=== PATIENT | female | born 1955 | race Caucasian/White ===

== ENCOUNTER 2017-12-14 18:16 | Inpatient (IN) | payer BC ==
[2017-12-14 19:09] LABS: Glucose,Whole Blood 103 mg/dL (75-99)
[2017-12-14 19:26] LABS: Basophils # (A) 0.1 k/uL (0-0.2); Basophils % (A) 1 %; Eosinophils # (A) 0.1 k/uL (0-0.7); Eosinophils % (A) 2 %; HGB 14.2 gm/dL (11.4-16.0); Lymphocytes # (A) 1.2 k/uL (1.0-4.8); Lymphocytes % (A) 17 %; MCH 30.1 pg (25.0-35.0); MCHC 34.5 g/dL (31.0-37.0); MCV 87.3 fL (80.0-100.0); Mean Platelet Volume 7.6; Monocytes # (A) 0.3 k/uL (0-1.0); Monocytes % (A) 4 %; Neutrophils # (A) 5.1 k/uL (1.3-7.7); Neutrophils % (A) 74 %; Platelet Count 220 k/uL (150-450); RDW 13.3 % (11.5-15.5); WBC 6.9 k/uL (3.8-10.6)
--- NOTE | 2017-12-14 19:27 | CT ---
EXAMINATION TYPE: CT brain wo con DATE OF EXAM: 12/14/2017 COMPARISON: None HISTORY: ams, confusion CT DLP: 997.2 mGycm Automated exposure control for dose reduction was used. FINDINGS: Ventricles of normal size. There is no mass effect nor midline shift. There is no sign of intracrania l hemorrhage. The calvarium is intact. IMPRESSION: NEGATIVE CT SCAN OF THE BRAIN.
[2017-12-14 19:35] LABS: Partial Thromboplastin Time 22.3 sec (22.0-30.0); Prothrombin Time 9.7 sec (9.0-12.0)
[2017-12-14 19:36] LABS: Creatine Kinase 86 U/L (30-135)
[2017-12-14 19:37] LABS: ALT 71 U/L (9-52); AST 51 U/L (14-36); Albumin 4.2 g/dL (3.5-5.0); Alkaline Phosphatase 108 U/L (38-126); Anion Gap 10 mmol/L; Blood Urea Nitrogen 15 mg/dL (7-17); Calcium 9.6 mg/dL (8.4-10.2); Carbon Dioxide 24 mmol/L (22-30); Chloride 106 mmol/L (98-107); Glucose 104 mg/dL (74-99); Potassium 4.1 mmol/L (3.5-5.1); Sodium 140 mmol/L (137-145); Total Bilirubin 0.5 mg/dL (0.2-1.3); Total Protein 6.9 g/dL (6.3-8.2)
--- NOTE | 2017-12-14 19:39 | XR ---
EXAMINATION TYPE: XR chest 2V DATE OF EXAM: 12/14/2017 COMPARISON: NONE HISTORY: Altered mental status TECHNIQUE: Frontal and lateral views of the chest are obtained. FINDINGS: Heart and mediastinum are normal. Lungs are clear of consolidation. There is small linear density at the left lung base. There are chest leads. IMPRESSION: Segmental atelectasis at the left lung base. Normal heart.
--- NOTE | 2017-12-14 19:41 | ED ---
General Adult HPI - General Chief complaint: Neuro Symptoms/Deficit Stated complaint: Confusion Time Seen by Provider: 12/14/17 18:25 Source: patient, RN notes reviewed Mode of arrival: ambulatory Limitations: no limitations - History of Present Illness Initial comments: 62-year-old female with a past medical history of hypertension and hyperlipidemia presents to the emergency department for a chief complaint of confusion 1 hour. states that they were getting ready to go to a friend's house for dinner. He stated he told her she needed to get dressed and she stated she did not know why. She was confused about what they were about to do. He stated she was unsure of where she worked. He states that at this time she seems much better. Patient does not have any history of stroke or TIA. No history of A. fib. No fevers or chills at home. Patient has no other complaints at this time including shortness of breath, chest pain, abdominal pain, nausea or vomiting, headache, or visual changes. - Related Data Home Medications Medication Instructions Recorded Confirmed Atorvastatin [Lipitor] 20 mg PO HS 12/15/15 12/14/17 Venlafaxine HCl [Effexor XR] 300 mg PO HS 12/15/15 12/14/17 amLODIPine [Norvasc] 5 mg PO HS 12/15/15 12/14/17 Aliskiren Hemifumarate [Tekturna] 300 mg PO HS 12/14/17 12/14/17 Cholecalciferol [Vitamin D3] 1,000 unit PO DAILY 12/14/17 12/14/17 Fexofenadine HCl [Joy Allergy] 180 mg PO DAILY 12/14/17 12/14/17 Fish Oil/Dha/Epa [Fish Oil 1,200 1 cap PO DAILY 12/14/17 12/14/17 mg Fish Oil] Metoprolol Succinate [Toprol Xl] 100 mg PO HS 12/14/17 12/14/17 Allergies Allergy/AdvReac Type Severity Reaction Status Date / Time cephalexin [From Keflex] Allergy Rash/Hives Verified 12/14/17 19:01 Review of Systems ROS Statement: Those systems with pertinent positive or pertinent negative responses have been documented in the HPI. ROS Other: All systems not noted in ROS Statement are negative. Past Medical History Past Medical History: Hyperlipidemia, Hypertension History of Any Multi-Drug Resistant Organisms: None Reported Past Surgical History: Hysterectomy, Orthopedic Surgery Additional Past Surgical History / Comment(s): left knee, breast bx Past Psychological History: Anxiety Smoking Status: Former smoker Past Alcohol Use History: Occasional Past Drug Use History: None Reported General Exam Limitations: no limitations General appearance: alert, in no apparent distress Head exam: Present: atraumatic, normocephalic, normal inspection Eye exam: Present: normal appearance, PERRL, EOMI. Absent: scleral icterus, conjunctival injection, periorbital swelling ENT exam: Present: normal exam, mucous membranes moist Neck exam: Present: normal inspection, full ROM. Absent: tenderness, meningismus, lymphadenopathy Respiratory exam: Present: normal lung sounds bilaterally. Absent: respiratory distress, wheezes, rales, rhonchi, stridor Cardiovascular Exam: Present: regular rate, normal rhythm, normal heart sounds. Absent: systolic murmur, diastolic murmur, rubs, gallop, clicks GI/Abdominal exam: Present: soft, normal bowel sounds. Absent: distended, tenderness, guarding, rebound, rigid Neurological exam: Present: alert, oriented X3, CN II-XII intact, normal gait. Absent: motor sensory deficit Expanded Patient oriented to: Present: person, place, time Speech: Present: fluid speech Cranial nerves: EOM's Intact: Normal, Tongue Deviation: Normal, Nystagmus: Normal Cerebellar function: Finger to Nose: Normal Upper motor neuron: Pronator Drift: Normal Sensory exam: Upper Extremity Light Touch: Normal, Upper Extremity Pin Prick: Normal, Lower Extremity Light Touch: Normal, Lower Extremity Pin Prick: Normal Motor strength exam: RUE: 5, LUE: 5, RLE: 5, LLE: 5 Eye Response: (4) open spontaneously Motor Response: (6) obeys commands Verbal Response: (5) oriented Rhona Total: 15 Psychiatric exam: Present: normal affect, normal mood Course Vital Signs 12/14/17 18:20 Temperature 96.8 F L Pulse Rate 92 Respiratory 16 Rate Blood Pressure 165/105 O2 Sat by Pulse 95 Oximetry EKG Findings - EKG Comments: EKG Findings:: EKG shows normal sinus rhythm, ventricular rate 88, MD interval 138, QRS duration 96, QTc 471, no evidence of ST elevation or depression Medical Decision Making - Medical Decision Making 62 year old female presents to the emergency department for a chief complaint of onset of confusion 1 hour. Patient apparently did not know what her plans were for tonight or where she worked. At the time of evaluation patient's states she has seemingly much better. She is alert and oriented 3. There is still some very mild confusion. For example, it did take the patient about 10 seconds to answer the president's name. On exam no focal neuro deficits. No facial droop. NIH 0. EKG shows no evidence of ST elevation. Chest x-ray shows segmental atelectasis at the left lung base. Lungs are clear of consolidation. Negative computed tomography scan of the brain. ABCD2 score is 3 due to patient age blood pressure and duration of symptoms. Blood pressure will be kept as is in not decreased. Patient will be admitted with neurology consult, carotid duplex and echo. - Lab Data Result diagrams: 12/14/17 19:00 12/14/17 19:00 Lab Results 12/14/17 12/14/17 12/14/17 Range/Units 19:00 19:00 19:00 WBC 6.9 (3.8-10.6) k/uL RBC 4.70 (3.80-5.40) m/uL Hgb 14.2 (11.4-16.0) gm/dL Hct 41.0 (34.0-46.0) % MCV 87.3 (80.0-100.0) fL MCH 30.1 (25.0-35.0) pg MCHC 34.5 (31.0-37.0) g/dL RDW 13.3 (11.5-15.5) % Plt Count 220 (150-450) k/uL Neutrophils % 74 % Lymphocytes % 17 % Monocytes % 4 % Eosinophils % 2 % Basophils % 1 % Neutrophils # 5.1 (1.3-7.7) k/uL Lymphocytes # 1.2 (1.0-4.8) k/uL Monocytes # 0.3 (0-1.0) k/uL Eosinophils # 0.1 (0-0.7) k/uL Basophils # 0.1 (0-0.2) k/uL PT (9.0-12.0) sec INR (<1.2) APTT (22.0-30.0) sec Sodium 140 (137-145) mmol/L Potassium 4.1 (3.5-5.1) mmol/L Chloride 106 (98-107) mmol/L Carbon Dioxide 24 (22-30) mmol/L Anion Gap 10 mmol/L BUN 15 (7-17) mg/dL Creatinine 0.64 (0.52-1.04) mg/dL Est GFR (CKD-EPI)AfAm >90 (>60 ml/min/1.73 sqM) Est GFR (CKD-EPI)NonAf >90 (>60 ml/min/1.73 sqM) Glucose 104 H (74-99) mg/dL POC Glucose (mg/dL) (75-99) mg/dL POC Glu Hand Hose Cutter ID Calcium 9.6 (8.4-10.2) mg/dL Total Bilirubin 0.5 (0.2-1.3) mg/dL AST 51 H (14-36) U/L ALT 71 H (9-52) U/L Alkaline Phosphatase 108 (38-126) U/L Total Creatine Kinase 86 (30-135) U/L CK-MB (CK-2) 1.3 (0.0-2.4) ng/mL CK-MB (CK-2) Rel Index 1.5 Troponin I <0.012 (0.000-0.034) ng/mL Total Protein 6.9 (6.3-8.2) g/dL Albumin 4.2 (3.5-5.0) g/dL Urine Color Urine Appearance (Clear) Urine pH (5.0-8.0) Ur Specific [place] (1.001-1.035) Urine Protein (Negative) Urine Glucose (UA) (Negative) Urine Ketones (Negative) Urine Blood (Negative) Urine Nitrite (Negative) Urine Bilirubin (Negative) Urine Urobilinogen (<2.0) mg/dL Ur Leukocyte Esterase (Negative) Urine Opiates Screen (NotDetected) Ur Oxycodone Screen (NotDetected) Urine Methadone Screen (NotDetected) Ur Propoxyphene Screen (NotDetected) Ur Barbiturates Screen (NotDetected) U Tricyclic Antidepress (NotDetected) Ur Phencyclidine Scrn (NotDetected) Ur Amphetamines Screen (NotDetected) U Methamphetamines Scrn (NotDetected) U Benzodiazepines Scrn (NotDetected) Urine Cocaine Screen (NotDetected) U Marijuana (THC) Screen (NotDetected) 12/14/17 12/14/17 12/14/17 Range/Units 19:00 19:07 20:08 WBC (3.8-10.6) k/uL RBC (3.80-5.40) m/uL Hgb (11.4-16.0) gm/dL Hct (34.0-46.0) % MCV (80.0-100.0) fL MCH (25.0-35.0) pg MCHC (31.0-37.0) g/dL RDW (11.5-15.5) % Plt Count (150-450) k/uL Neutrophils % % Lymphocytes % % Monocytes % % Eosinophils % % Basophils % % Neutrophils # (1.3-7.7) k/uL Lymphocytes # (1.0-4.8) k/uL Monocytes # (0-1.0) k/uL Eosinophils # (0-0.7) k/uL Basophils # (0-0.2) k/uL PT 9.7 (9.0-12.0) sec INR 1.0 (<1.2) APTT 22.3 (22.0-30.0) sec Sodium (137-145) mmol/L Potassium (3.5-5.1) mmol/L Chloride (98-107) mmol/L Carbon Dioxide (22-30) mmol/L Anion Gap mmol/L BUN (7-17) mg/dL Creatinine (0.52-1.04) mg/dL Est GFR (CKD-EPI)AfAm (>60 ml/min/1.73 sqM) Est GFR (CKD-EPI)NonAf (>60 ml/min/1.73 sqM) Glucose (74-99) mg/dL POC Glucose (mg/dL) 103 H (75-99) mg/dL POC Glu Hand Hose Cutter ID Donny Amezcua Calcium (8.4-10.2) mg/dL Total Bilirubin (0.2-1.3) mg/dL AST (14-36) U/L ALT (9-52) U/L Alkaline Phosphatase (38-126) U/L Total Creatine Kinase (30-135) U/L CK-MB (CK-2) (0.0-2.4) ng/mL CK-MB (CK-2) Rel Index Troponin I (0.000-0.034) ng/mL Total Protein (6.3-8.2) g/dL Albumin (3.5-5.0) g/dL Urine Color Light Yellow Urine Appearance Clear (Clear) Urine pH 6.0 (5.0-8.0) Ur Specific [place] 1.010 (1.001-1.035) Urine Protein Negative (Negative) Urine Glucose (UA) Negative (Negative) Urine Ketones Negative (Negative) Urine Blood Negative (Negative) Urine Nitrite Negative (Negative) Urine Bilirubin Negative (Negative) Urine Urobilinogen <2.0 (<2.0) mg/dL Ur Leukocyte Esterase Negative (Negative) Urine Opiates Screen Not Detected (NotDetected) Ur Oxycodone Screen Not Detected (NotDetected) Urine Methadone Screen Not Detected (NotDetected) Ur Propoxyphene Screen Not Detected (NotDetected) Ur Barbiturates Screen Not Detected (NotDetected) U Tricyclic Antidepress Not Detected (NotDetected) Ur Phencyclidine Scrn Not Detected (NotDetected) Ur Amphetamines Screen Not Detected (NotDetected) U Methamphetamines Scrn Not Detected (NotDetected) U Benzodiazepines Scrn Not Detected (NotDetected) Urine Cocaine Screen Not Detected (NotDetected) U Marijuana (THC) Screen Not Detected (NotDetected) Disposition Clinical Impression: TIA (transient ischemic attack) Disposition: ADMITTED IP TO THIS [facility] Condition: Good Is patient prescribed a controlled substance at d/c from ED?: No Referrals: Nonstaff,Physician [Primary Care Provider] - 1-2 days Time of Disposition: 20:59
[2017-12-14 19:48] LABS: Creatine Kinase MB 1.3 ng/mL (0.0-2.4); Troponin I <0.012 ng/mL (0.000-0.034)
[2017-12-14 20:19] LABS: Appearance,Urine Clear (Clear); Bilirubin,Urine Negative (Negative); Blood,Urine Negative (Negative); Color,Urine Light Yellow; Glucose,Urine (UA) Negative (Negative); Ketones,Urine Negative (Negative); Leukocyte Esterase,Urine Negative (Negative); Nitrite,Urine Negative (Negative); Protein,Urine Negative (Negative); Urobilinogen,Urine <2.0 mg/dL (<2.0)
[2017-12-14 20:29] LABS: Amphetamine Screen,Urine Not Detected (NotDetected); Barbiturate Screen,Urine Not Detected (NotDetected); Benzodiazepines Screen,Urine Not Detected (NotDetected); Cocaine Screen,Urine Not Detected (NotDetected); Methadone Screen, Urine Not Detected (NotDetected); Opiate Screen,Urine Not Detected (NotDetected); Oxycodone Screen, Urine Not Detected (NotDetected); Phencyclidine Screen,Urine Not Detected (NotDetected); Tricyclic Antidepressant,Urine Not Detected (NotDetected); Urn Cannabinoid Scrn Not Detected (NotDetected)
[2017-12-14] MEDS ORDERED: ASPIRIN 325 MG TAB PO STA (20:55)
[2017-12-14] MEDS ORDERED: amLODIPine 5 MG TAB PO SCH (22:00)
[2017-12-14] MEDS ORDERED: ATORVASTATIN 20 MG TAB PO SCH (22:00)
[2017-12-14] MEDS: SODIUM CHLORIDE 0.9% 1,000 ML IV SCH (22:40)
[2017-12-14 23:15] VITALS: BMI 33.5
[2017-12-15] MEDS ORDERED: VENLAFAXINE HCL ER 150 MG CAP PO SCH (00:15)
--- NOTE | 2017-12-15 00:48 | US ---
EXAMINATION TYPE: US carotid duplex BILAT DATE OF EXAM: 12/14/2017 COMPARISON: NONE CLINICAL HISTORY: Stenosis. EXAM MEASUREMENTS: RIGHT: Peak Systolic Velocity (PSV) cm/sec ----- Right CCA: 81.7 ----- Right ICA: 60.0 ----- Right ECA: 47.2 ICA/CCA ratio: 0.7 RIGHT: End Diastole cm/sec ----- Right CCA: 25.0 ----- Right ICA: 29.0 ----- Right ECA: 47.2 LEFT: Peak Systolic Velocity (PSV) cm/sec ----- Left CCA: 76.2 ----- Left ICA: 54.4 ----- Left ECA: 51.3 ICA/CCA ratio: 0.7 LEFT: End Diastole cm/sec ----- Left CCA: 21.2 ----- Left ICA: 24.0 ----- Left ECA: 11.8 VERTEBRALS (direction of flow): Right Vertebral: Antegrade Left Vertebral: Antegrade Rhythm: Normal No evident atherosclerotic changes with no significant velocity increases. IMPRESSION: There is antegrade flow in the vertebral arteries. The images and measurements suggest c lose to 0% stenosis in both internal carotid arteries. Criteria for Assigning % of Stenosis / Diameter reduction (Estimation based on the indirect measurements of the internal carotid artery velocities (ICA PSV). 1. Normal (no stenosis)=ICA PSV < 125 cm/s: ratio < 2.0: ICA EDV<40 cm/s. 2. Less than 50% stenosis=ICA PSV < 125 cm/s: ratio < 2.0: ICA EDV<40 cm/s. 3. 50 to 69% stenosis=ICA PSV of 125 to 230 cm/s: ration 2.0 ? 4.0: ICA EDV 40-100 cm/s. 4. Greater than 70% stenosis to near occlusion= ICA PSV > 230 cm/s: ratio > 4.0: ICA EDV > 100 cm/s. 5. Near occlusion= ICA PSV velocities may be low or undetectable: variable ratio and ICA EDV. 6. Total occlusion=unable to detect flow.
[2017-12-15] MEDS ORDERED: ACETAMINOPHEN TAB 325 MG TAB PO PRN (07:01)
[2017-12-15 07:44] LABS: Cholesterol 211 mg/dL (<200); HDL Cholesterol 47 mg/dL (40-60); LDL Cholesterol,Calculated 122 mg/dL (0-99); Triglycerides 208 mg/dL (<150)
[2017-12-15 07:58] VITALS: TEMP 98.6
[2017-12-15] MEDS: IBUPROFEN 400 MG TAB PO PRN ×2 (07:58→14:48)
[2017-12-15 08:09] VITALS: RESP 18
[2017-12-15] MEDS ORDERED: ASPIRIN 325 MG TAB PO SCH (09:00)
[2017-12-15] MEDS ORDERED: CHOLECALCIFEROL 1,000 UNIT TAB PO SCH (09:00)
[2017-12-15] MEDS: SODIUM CHLORIDE 0.9% 1,000 ML IV SCH (09:41)
--- NOTE | 2017-12-15 14:21 | P.CNNES ---
History of Present Illness Consult date: 12/15/17 Requesting physician: Mariangel Delacruz Reason for Consult: TIA History of Present Illness: Patient is a pleasant 62-year-old female who is being evaluated by the neurology service on 12/15/2017 per the request of Dr. Delacruz for TIA. 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 Patient states she remembers starting to get ready and then has no memory until being in the emergency room. states patient was getting ready to go out for the evening they had plans to go to dinner with friends, suddenly patient did not remember where she was going or with a were going with. Patient was unclear as to where she worked. states he put her in the truck and drove her 3 blocks to a physician's office and they were instructed to come to the ER. They had called an ambulance for the patient. Patient was brought to [facility] for evaluation. Patient does remember being in the emergency room but doesn't remember how she got there. Patient has no history of TIA/CVA. She does have history of hypertension and hyperlipidemia. Patient denies having a headache at the time. Denies lateralizing weakness. Patient and states she is back to baseline at this time. Episode lasted approximately an hour and a half. Computed tomography scan of the brain was negative for any acute intracranial process. Chest x-ray showed segmental atelectasis at the left lung base. Normal heart. EKG is sinus rhythm. Carotid Dopplers showed no hemodynamically significant stenosis. Vital signs on admission were temperature 96.8, pulse 92 , respiratory rate 16, blood pressure 165/105, and oxygen saturation was 95% on room air. Lipid panel was elevated but had normal HDL of 47. At the time of my evaluation, patient's resting comfortably in bed and appears to be in no acute distress. Patient has not had any return of symptoms. Review of Systems REVIEW OF SYSTEMS: Otherwise unremarkable and noncontributory. Past Medical History Past Medical History: Hyperlipidemia, Hypertension History of Any Multi-Drug Resistant Organisms: None Reported Past Surgical History: Hysterectomy, Orthopedic Surgery Additional Past Surgical History / Comment(s): left knee, breast bx Past Psychological History: Anxiety, Depression Smoking Status: Former smoker Past Alcohol Use History: Occasional Past Drug Use History: None Reported - Past Family History Mother Family Medical History: Cancer, Diabetes Mellitus, Thyroid Disorder Father Family Medical History: Coronary Artery Disease (CAD) Medications and Allergies Home Medications Medication Instructions Recorded Confirmed Type Atorvastatin [Lipitor] 20 mg PO HS 12/15/15 12/14/17 History Venlafaxine HCl [Effexor XR] 300 mg PO HS 12/15/15 12/14/17 History amLODIPine [Norvasc] 5 mg PO HS 12/15/15 12/14/17 History Aliskiren Hemifumarate [Tekturna] 300 mg PO HS 12/14/17 12/14/17 History Cholecalciferol [Vitamin D3] 1,000 unit PO DAILY 12/14/17 12/14/17 History Fexofenadine HCl [Joy Allergy] 180 mg PO DAILY 12/14/17 12/14/17 History Fish Oil/Dha/Epa [Fish Oil 1,200 1 cap PO DAILY 12/14/17 12/14/17 History mg Fish Oil] Metoprolol Succinate [Toprol Xl] 100 mg PO HS 12/14/17 12/14/17 History Allergies Allergy/AdvReac Type Severity Reaction Status Date / Time cephalexin [From Keflex] Allergy Rash/Hives Verified 12/14/17 19:01 Physical Examination - Vital Signs Vital Signs: Vital Signs Temp Pulse Pulse Resp BP BP Pulse Ox 12/15/17 08:08 18 12/15/17 07:57 98.6 F 101 H 16 141/87 91 L 12/15/17 04:00 97.5 F L 103 H 15 144/91 97 12/15/17 00:00 98.1 F 91 16 156/98 98 12/14/17 22:50 98.0 F 94 16 139/90 98 12/14/17 22:30 98.0 F 90 16 147/90 98 12/14/17 22:21 98.1 F 91 17 156/98 98 12/14/17 22:00 95 18 146/90 98 12/14/17 21:43 98.8 F 91 15 145/90 95 12/14/17 21:30 98.2 F 90 18 142/89 98 12/14/17 21:00 98.6 F 94 16 160/90 98 12/14/17 20:30 98.2 F 87 16 150/89 98 12/14/17 20:00 95 20 158/100 98 12/14/17 19:30 94 20 162/102 96 12/14/17 19:00 90 18 166/110 98 12/14/17 18:20 96.8 F L 92 16 165/105 95 Intake and Output 12/14/17 12/15/17 12/15/17 22:59 06:59 14:59 Intake Total 85 1080 Balance 85 1080 Intake: Intake, IV Titration 75 600 Amount Sodium Chloride 0.9% 1, 75 600 000 ml @ 75 mls/hr IV . [id number] [facility] Rx#:[id number] Oral 10 480 Other: Voiding Method Toilet # Voids 2 Weight 85.74 kg 85.7 kg PHYSICAL EXAM: GENERAL APPEARANCE: Patient is a well-developed, female who appears to be in no acute distress. HEENT: Normocephalic, atraumatic, no facial asymmetry is seen. Neck is supple with no masses felt. CARDIOVASCULAR: Regular rate and rhythm. ABDOMEN: Nontender, nondistended. EXTREMITIES: Show no edema or clubbing. NEUROLOGICAL EXAM: Patient is awake, alert, and oriented 3. Speech and language are normal. Strength is full in all 4 extremities. Sensory exam to light touch is normal in all 4 extremities. No facial asymmetry is seen on cranial nerve testing. No tremors or seizure-like activity noted. Results - Laboratory Findings CBC and BMP: 12/14/17 19:00 12/14/17 19:00 Abnormal Lab Findings: Abnormal Labs 12/14/17 12/14/17 12/15/17 19:00 19:07 06:03 Glucose 104 H POC Glucose (mg/dL) 103 H AST 51 H ALT 71 H Triglycerides 208 H Cholesterol 211 H LDL Cholesterol, Calc 122 H Assessment and Plan Plan: Impression: 1. TIA 2. Hypertension 3. Hyperlipidemia Recommendations: It does appear the patient had a transient ischemic attack with a transient episode of confusion. Carotid Dopplers showed no hemodynamically significant stenosis. Computed tomography scan of the brain was negative for any acute abnormality. Patient has no neurological deficits at this time. Patient was on aspirin in the home setting. I will switch her aspirin to Plavix 75 mg by mouth daily. Lipid panel was elevated. I will order a serum homocystine level. Continue statin therapy. Patient can follow up in the office for an EEG and an MRI of the brain. No further neurological workup needed at this time. Continue neurological checks. Patient is stable from a neurological standpoint for discharge. I will continue to follow with you on an as-needed basis. Feel free to call with any questions or concerns. Thank you for allowing me to participate in the care of your patient. Feel free to call with any questions or concerns. I performed an examination of the patient and discussed the management with the CARE TEAM ASSISTANT. I have reviewed the CARE TEAM ASSISTANT notes and agree with the findings and plan of care.
[2017-12-15 16:00] VITALS: BP 146/85; PULSE 110
--- NOTE | 2017-12-15 16:25 | ECHOF ---
Referral Reason:Thrombus MEASUREMENTS -------- HEIGHT: 160.0 cm WEIGHT: 85.3 kg BP: IVSd: 1.1 cm (0.6 - 1.1) LVIDd: 3.5 cm (3.9 - 5.3) LVPWd: 1.4 cm (0.6 - 1.1) IVSs: 1.8 cm LVIDs: 2.1 cm LVPWs: 1.7 cm LAESV Index (A-L): 20.04 ml/m Ao Diam: 3.2 cm (2.0 - 3.7) AV Cusp: 1.7 cm (1.5 - 2.6) LA Diam: 3.2 cm (2.7 - 3.8) MV E Cameron: 0.74 m/s MV DecT: 102 ms MV A Cameron: 1.20 m/s MV E/A Ratio: 0.61 RAP: 5.00 mmHg RVSP: 12.70 mmHg FINDINGS -------- Sinus rhythm. Resting tachycardia (HR>100bpm). This was a technically good study. The left ventricular size is normal. There is mild concentric left ventricular hypertrophy. Overa ll left ventricular systolic function is normal with, an EF between 60 - 65 %. The right ventricle is normal in size. The left atrium is normal in size. The right atrium is normal in size. The aortic valve is trileaflet, and appears structurally normal. No aortic stenosis or regurgitation. The mitral valve is normal. There is trace mitral regurgitation. Trace tricuspid regurgitation present. The right ventricular systolic pressure, as measured by Dopp ler, is 12.70mmHg. There is no pulmonic regurgitation present. The aortic root size is normal. Normal inferior vena cava with normal inspiratory collapse consistent with estimated right atrial pre ssure of 5 mmHg. There is a small, generalized pericardial effusion present. CONCLUSIONS -------- 1. Sinus rhythm. 2. Resting tachycardia (HR>100bpm). 3. This was a technically good study. 4. The left ventricular size is normal. 5. There is mild concentric left ventricular hypertrophy. 6. Overall left ventricular systolic function is normal with, an EF between 60 - 65 %. 7. The left atrium is normal in size. 8. The aortic valve is trileaflet, and appears structurally normal. No aortic stenosis or regurgitati on. 9. There is trace mitral regurgitation. 10. Trace tricuspid regurgitation present. 11. The right ventricular systolic pressure, as measured by Doppler, is 12.70mmHg. 12. There is no pulmonic regurgitation present. 13. The aortic root size is normal. 14. Normal inferior vena cava with normal inspiratory collapse consistent with estimated right atrial pressure of 5 mmHg. 15. There is a small, generalized pericardial effusion present. SENSITOMETRIST: Tomasa Saenz RDCS
[2017-12-15] MEDS ORDERED: CLOPIDOGREL 75 MG TAB PO STA (16:49)
--- NOTE | 2017-12-15 19:01 | P.HPIM ---
History of Present Illness H&P Date: 12/15/17 Chief Complaint: Memory loss Patient is a 62-year-old female with a known history of hypertension, hyperlipidemia, anxiety/depression was brought to the hospital with sudden loss of memory. Patient came home from work and was getting ready and suddenly lost her memory and she did not know where she is going. Patient's put her on the truck and drove her to the physician's office and was instructed to go to ER. EMS was called. Patient was brought to the hospital. Patient regained her consciousness after 2 hours when the EMS arrived. Otherwise patient denied any history of CVA/TIA. She does take medications on regular basis. Patient does take aspirin at home. Denied any shaking movements. No chest pain or shortness of breath. Patient is currently back to her baseline mental status. In the ER patient had CT head showed no acute intracranial process. Chest x-ray showed no acute cardiopulmonary process EKG showed normal sinus rhythm Carotid duplex showed no hemodynamically significant stenosis. Patient denied any recent infections. No cough or sputum production. Neurology was consulted for further evaluation. TSH within normal limits 2-D echocardiogram showed mild concentric left ventricle hypertrophy. Normal ejection fraction. No significant valvular abnormality. Review of Systems Constitutional: Patient denies any fever or chills . No generalized weakness or weight loss. Abdomen: Patient denied nausea vomiting and diarrhea and abdominal pain. Cardiovascular: Patient denies any chest pain or short of breath no palpitations. Respiratory: patient denied any cough is from production. No shortness of breath Neurologic: Patient denied any numbness or tingling headache. Musculoskeletal: Patient denies any complaints of joint swelling or deformity. Skin: Negative Psychiatric: Negative Endocrine: No heat or cold intolerance. No recent weight gain. Genitourinary: No dysuria or hematuria. All other 14 point ROS negative except the above Past Medical History Past Medical History: Hyperlipidemia, Hypertension History of Any Multi-Drug Resistant Organisms: None Reported Past Surgical History: Hysterectomy, Orthopedic Surgery Additional Past Surgical History / Comment(s): left knee, breast bx Past Psychological History: Anxiety, Depression Smoking Status: Former smoker Past Alcohol Use History: Occasional Past Drug Use History: None Reported - Past Family History Mother Family Medical History: Cancer, Diabetes Mellitus, Thyroid Disorder Father Family Medical History: Coronary Artery Disease (CAD) Medications and Allergies Home Medications Medication Instructions Recorded Confirmed Type Atorvastatin [Lipitor] 20 mg PO HS 12/15/15 12/14/17 History Venlafaxine HCl [Effexor XR] 300 mg PO HS 12/15/15 12/14/17 History amLODIPine [Norvasc] 5 mg PO HS 12/15/15 12/14/17 History Aliskiren Hemifumarate [Tekturna] 300 mg PO HS 12/14/17 12/14/17 History Cholecalciferol [Vitamin D3] 1,000 unit PO DAILY 12/14/17 12/14/17 History Fexofenadine HCl [Joy Allergy] 180 mg PO DAILY 12/14/17 12/14/17 History Fish Oil/Dha/Epa [Fish Oil 1,200 1 cap PO DAILY 12/14/17 12/14/17 History mg Fish Oil] Metoprolol Succinate [Toprol Xl] 100 mg PO HS 12/14/17 12/14/17 History Clopidogrel [Plavix] 75 mg PO DAILY 12/15/17 12/15/17 History Allergies Allergy/AdvReac Type Severity Reaction Status Date / Time cephalexin [From Keflex] Allergy Rash/Hives Verified 12/14/17 19:01 Physical Exam Vitals: Vital Signs Temp Pulse Pulse Resp BP BP Pulse Ox 12/15/17 08:08 18 12/15/17 07:57 98.6 F 101 H 16 141/87 91 L 12/15/17 04:00 97.5 F L 103 H 15 144/91 97 12/15/17 00:00 98.1 F 91 16 156/98 98 12/14/17 22:50 98.0 F 94 16 139/90 98 12/14/17 22:30 98.0 F 90 16 147/90 98 12/14/17 22:21 98.1 F 91 17 156/98 98 12/14/17 22:00 95 18 146/90 98 12/14/17 21:43 98.8 F 91 15 145/90 95 12/14/17 21:30 98.2 F 90 18 142/89 98 12/14/17 21:00 98.6 F 94 16 160/90 98 12/14/17 20:30 98.2 F 87 16 150/89 98 12/14/17 20:00 95 20 158/100 98 12/14/17 19:30 94 20 162/102 96 12/14/17 19:00 90 18 166/110 98 12/14/17 18:20 96.8 F L 92 16 165/105 95 Intake and Output 12/14/17 12/15/17 12/15/17 22:59 06:59 14:59 Intake Total 85 1080 Balance 85 1080 Intake: Intake, IV Titration 75 600 Amount Sodium Chloride 0.9% 1, 75 600 000 ml @ 75 mls/hr IV . [id number] [facility] Rx#:[id number] Oral 10 480 Other: Voiding Method Toilet # Voids 2 Weight 85.74 kg 85.7 kg PHYSICAL EXAMINATION: Patient is lying in the bed comfortably, no acute distress, awake alert and oriented.. HEENT: Normocephalic. Neck is supple. Pupils reactive. Nostrils clear. Oral cavity is moist. Ears reveal no drainage. Neck reveals no JVD, carotid bruits, or thyromegaly. CHEST EXAMINATION: Trachea is central. Symmetrical expansion. Lung cline clear to auscultation and percussion. CARDIAC: Normal S1, S2 with no gallops. No murmurs ABDOMEN: Soft. Bowel sounds normal. No organomegaly. No abdominal bruits. Extremities: reveal no edema. No clubbing or cyanosis Neurologically awake, alert, oriented x3 with well-coordinated movements. No focal deficits noted Skin: No rash or skin lesions. Psychiatric: Coperative. Nonsuicidal Musculoskeletal: No joint swelling or deformity. Normal range of motion. Results CBC & Chem 7: 12/14/17 19:00 12/14/17 19:00 Labs: Abnormal Lab Results - Last 24 Hours (Table) 12/14/17 12/14/17 12/15/17 Range/Units 19:00 19:07 06:03 Glucose 104 H (74-99) mg/dL POC Glucose (mg/dL) 103 H (75-99) mg/dL AST 51 H (14-36) U/L ALT 71 H (9-52) U/L Triglycerides 208 H (<150) mg/dL Cholesterol 211 H (<200) mg/dL LDL Cholesterol, Calc 122 H (0-99) mg/dL Thrombosis Risk Factor Assmnt - DVT/VTE Prophylaxis DVT/VTE Prophylaxis: Pharmacologic Prophylaxis ordered - Choose All That Apply Any of the Below Risk Factors Present?: Yes Each Factor Represents 1 point: Age 41-60 years, Obesity (BMI >25) Other Risk Factors: No Thrombosis Risk Factor Assessment Total Risk Factor Score: 2 Thrombosis Risk Factor Assessment Level: Low Risk Assessment and Plan Assessment: Sudden memory loss likely due to TIA. Currently patient is alert and oriented 3 and at baseline Hypertension Hyperlipidemia Obesity with BMI 33.5 Anxiety/depression DVT prophylaxis Plan: Patient will be continued on telemetry monitoring. Patient had stroke workup including CT head carotid duplex, 2-D echo all are negative studies. Patient was seen by neurology and recommended outpatient MRI of the brain and EEG. Currently patient is symptomatic. Further recommendations based on the clinical course. Time with Patient: Greater than 30
--- NOTE | 2017-12-15 19:03 | P.DS ---
Providers Date of admission: 12/14/17 20:59 Expected date of discharge: 12/15/17 Attending physician: Mariangel Delacruz Consults: 12/14/17 21:01 Consult Physician Urgent Consulting Provider: Primitivo London Consult Reason/Comments: TIA, confusion Do you want consulting provider notified?: Yes Primary care physician: Physician Nonstaff Hospital Course: Discharge diagnosis Sudden memory loss likely due to TIA. Currently patient is alert and oriented 3 and at baseline Uncontrolled Hypertension on admission. Continue with Toprol-XL and Norvasc at home. Hyperlipidemia Obesity with BMI 33.5 Anxiety/depression DVT prophylaxis Patient is a 62-year-old female with a known history of hypertension, hyperlipidemia, anxiety/depression was brought to the hospital with sudden loss of memory. Patient came home from work and was getting ready and suddenly lost her memory and she did not know where she is going. Patient's put her on the truck and drove her to the physician's office and was instructed to go to ER. EMS was called. Patient was brought to the hospital. Patient regained her consciousness after 2 hours when the EMS arrived. Otherwise patient denied any history of CVA/TIA. She does take medications on regular basis. Patient does take aspirin at home. Denied any shaking movements. No chest pain or shortness of breath. Patient is currently back to her baseline mental status. In the ER patient had CT head showed no acute intracranial process. Chest x-ray showed no acute cardiopulmonary process EKG showed normal sinus rhythm Carotid duplex showed no hemodynamically significant stenosis. Patient denied any recent infections. No cough or sputum production. Neurology was consulted for further evaluation. TSH within normal limits 2-D echocardiogram showed mild concentric left ventricle hypertrophy. Normal ejection fraction. No significant valvular abnormality. Plan: Patient will be continued on telemetry monitoring. Patient had stroke workup including CT head carotid duplex, 2-D echo all are negative studies. Patient was seen by neurology and recommended outpatient MRI of the brain and EEG. Currently patient is asymptomatic. Patient is stable to be discharged home and follow-up with neurology as an outpatient. Discharge physical examination was done and vitals reviewed. Vital Signs 12/15/17 12/15/17 13:00 16:00 Pulse Rate [ 110 H Pulse Oximetery ] Respiratory 18 18 Rate Blood Pressure 146/85 [Left Arm] O2 Sat by Pulse 96 Oximetry Patient Condition at Discharge: Good Plan - Discharge Summary Discharge Rx Participant: No New Discharge Prescriptions: Continue amLODIPine [Norvasc] 5 mg PO HS Venlafaxine HCl [Effexor XR] 300 mg PO HS Atorvastatin [Lipitor] 20 mg PO HS Metoprolol Succinate [Toprol Xl] 100 mg PO HS Fish Oil/Dha/Epa [Fish Oil 1,200 mg Fish Oil] 1 cap PO DAILY Fexofenadine HCl [Joy Allergy] 180 mg PO DAILY Cholecalciferol [Vitamin D3] 1,000 unit PO DAILY Aliskiren Hemifumarate [Tekturna] 300 mg PO HS Clopidogrel [Plavix] 75 mg PO DAILY Discharge Medication List Atorvastatin [Lipitor] 20 mg PO HS 12/15/15 [History] Venlafaxine HCl [Effexor XR] 300 mg PO HS 12/15/15 [History] amLODIPine [Norvasc] 5 mg PO HS 12/15/15 [History] Aliskiren Hemifumarate [Tekturna] 300 mg PO HS 12/14/17 [History] Cholecalciferol [Vitamin D3] 1,000 unit PO DAILY 12/14/17 [History] Fexofenadine HCl [Joy Allergy] 180 mg PO DAILY 12/14/17 [History] Fish Oil/Dha/Epa [Fish Oil 1,200 mg Fish Oil] 1 cap PO DAILY 12/14/17 [History] Metoprolol Succinate [Toprol Xl] 100 mg PO HS 12/14/17 [History] Clopidogrel [Plavix] 75 mg PO DAILY 12/15/17 [History] Follow up Appointment(s)/Referral(s): [facility], [facility] [Other] - 1 Week (please call office to make follow up appointment) Primitivo London MD [STAFF PHYSICIAN] - 1 Week (please call office to schedule appointment for MRI and EEG to be done in the office) Patient Instructions/Handouts: Transient Ischemic Attack (DC), Mediterranean Diet (DC) Discharge Disposition: HOME SELF-CARE
[2017-12-15] MEDS ORDERED: METOPROLOL SUCCINATE (ER) 100 MG TAB.ER.24H PO SCH (21:00)
[2017-12-16] MEDS ORDERED: CLOPIDOGREL 75 MG TAB PO SCH (09:00)
--- NOTE | 2017-12-19 09:00 | CDI ---
Last Revision, January 2017 Documentation Clarification Form Date: 12/19/2017 8:29:53 AM From: Brooke Machado Phone: If you have a question regarding this query, please contact Ashlyn Barboza at [phone] between 8am and 5pm. Admit Date: 12/14/2017 10:14:00 PM Patient Name: Eliane Lozano Visit Number: [id number] Discharge Date: 12/15/17 ATTENTION: The Clinical Documentation Specialists (CDI) and [facility] Coding Staff appreciate your assistance in clarifying documentation. Please respond to the clarification below the line at the bottom and electronically sign. The CDI & [facility] Coding staff will review the response and follow-up if needed. Please note: Queries are made part of the Legal Health Record. If you have any questions, please contact the author of this message via ITS. Koko Morgan MD Uncontrolled hypertension is documented in the discharge summary. Patient history/risk factors: Patient was admitted for sudden memory loss likely due to TIA. Clinical Indicators: Elevated blood pressures. Blood Pressure on 12/14: 165/105, 166/110, 162/102, 158/100 Treatment: Norvasc 5 mg PO. Patient is on Metoprolol 100 mg at home. In your professional opinion, can you please clarify the uncontrolled hypertension? Crisis Emergency Urgency Other, please specify Unable to determine Uncontrolled essential hypertension MTDD
== END 2017-12-15 18:07 | disposition home or self-care (01) | DRG 69 ==
LOC: EC 18:16 → 3SCARD 20:59 → OBSVTOIN 22:14
PROVIDERS: ADMIT Hospitalist; ATTEND Hospitalist
DX: G45.9 Transient cerebral ischemic attack, unspecified (principal); J98.11 Atelectasis; E66.9 Obesity, unspecified; E78.5 Hyperlipidemia, unspecified; F32.9 Major depressive disorder, single episode, unspecified; F41.9 Anxiety disorder, unspecified; I11.9 Hypertensive heart disease without heart failure; Z68.33 Body mass index [BMI] 33.0-33.9, adult; Z79.02 Long term (current) use of antithrombotics/antiplatelets; Z79.82 Long term (current) use of aspirin; Z79.899 Other long term (current) drug therapy; Z87.891 Personal history of nicotine dependence; Z90.710 Acquired absence of both cervix and uterus; Z88.1 Allergy status to other antibiotic agents; Z82.49 Family history of ischemic heart disease and other diseases of the circulatory system; Z83.3 Family history of diabetes mellitus; Z80.9 Family history of malignant neoplasm, unspecified; Z83.49 Family history of other endocrine, nutritional and metabolic diseases
CPT/HCPCS: 36415; 70450; 71046; 80053; 80061; 80306; 81003; 82550; 82553; 84443; 84484; 85025; 85610; 85730; 93005; 93306; 93880; 99285

== ENCOUNTER → 2018-02-07 | Outpatient (CLI) | payer BC ==
[2018-02-07 19:15] LABS: Blood Urea Nitrogen 11 mg/dL (7-17)
[2018-02-08 00:52] LABS: Albumin 4.4 g/dL (3.5-5.0); Anion Gap 12 mmol/L; Blood Urea Nitrogen 12 mg/dL (7-17); Calcium 9.5 mg/dL (8.4-10.2); Carbon Dioxide 23 mmol/L (22-30); Chloride 108 mmol/L (98-107); Glucose 178 mg/dL (74-99); Phosphorus 3.8 mg/dL (2.5-4.5); Potassium 3.6 mmol/L (3.5-5.1); Sodium 143 mmol/L (137-145)
--- NOTE | 2018-02-08 09:23 | MR ---
EXAMINATION TYPE: MR brain wo/w con DATE OF EXAM: 02/07/2018 8:26 PM COMPARISON: NONE HISTORY: Hx of TIA 12-14-2017, Memory loss CONTRAST: Patient received 7.5 mL intravenous Gadavist gadolinium contrast. Multiplanar and multispin-echo imaging of the brain was performed . Pre and post contrast enhanced i mages are obtained. The ventricles, basal cisterns and sulci overlying the cerebral convexities are mildly enlarged. There is evidence of mild periventricular white matter ischemic demyelination. Remote deep white matter insults are also noted. No acute edema is seen on diffusion weighted imaging. There is no evidence for midline shift or mass effect. Acute intracranial hemorrhage or extra-axial collection is not evident. No enhancing lesions are seen. The paranasal sinuses and mastoid air cells are well-aerated. IMPRESSION: Age-related atrophic and chronic small vessel ischemic change. No acute intracranial process at this time. No enhancing lesions are seen.
== END | disposition home or self-care (01) ==
LOC: RADMRIMAIN 18:41
PROVIDERS: ATTEND Internal Medicine
DX: G45.9 Transient cerebral ischemic attack, unspecified (principal); Z13.89 Encounter for screening for other disorder
CPT/HCPCS: 80069; 82565; 84520; 70553; 36415; A9585

== ENCOUNTER → 2019-04-24 | Outpatient (CLI) | payer BC ==
--- NOTE | 2019-05-05 12:19 | MM ---
Reason for exam: screening (asymptomatic). Last mammogram was performed 1 year and 7 months ago. History: Patient is postmenopausal. Benign excisional biopsy of the right breast, 1992. Took hormonal contraceptives for 8 years. Physical Findings: A clinical breast exam by your physician is recommended on an annual basis and results should be correlated with mammographic findings. MG 3D Screening Mammo W/Cad Bilateral CC and MLO view(s) were taken. Prior study comparison: September 28, 2017, mammogram, performed at [facility]. December 24, 2014, mammogram, performed at [facility]. There are scattered fibroglandular densities. No suspicious abnormality on the left breast. New right central, lower anterior depth focal asymmetry. ASSESSMENT: Incomplete: need additional imaging evaluation, BI-RAD 0 RECOMMENDATION: Special view mammogram of the right breast. If lesion persists on supplemental views, image directed ultrasound is recommended. [facility] will attempt to contact patient to return for supplemental views and ultrasound if indicated.
== END | disposition home or self-care (01) ==
LOC: RADMAMWWP 15:47
PROVIDERS: ATTEND Internal Medicine
DX: Z12.31 Encounter for screening mammogram for malignant neoplasm of breast (principal)
CPT/HCPCS: 77063; 77067

== ENCOUNTER → 2019-05-08 | Outpatient (CLI) | payer BC ==
[2019-05-08 17:04] VITALS: BP 135/87; PULSE 86; RESP 16; TEMP 97.9
--- NOTE | 2019-05-08 17:14 | P.GSHP ---
History of Present Illness H&P Date: 05/08/19 Chief Complaint: abnormal mammogram an ultrasound of the right martha Del Rio is a 63-year-old white female who had a routine screening mammogram performed on 3519. This revealed a new central anterior depth focal asymmetry in the right breast. No lesions of concern were in identified in the left breast. An ultrasound of the right breast was performed and this revealed a 16 x 17 mm irregular lesion for which biopsy was recommended. She has no history of any trauma or infection in the right breast. Caffiene: 3 cups of coffee/day smoke: occasionally chocolate: daily Family History: mother: thyroid sister: cancer not sure what type paternal cousin: kidney paternal cousin: breast paternal cousin: pancreatic paternal cousin: spinal cancer/jaw cancer Hormonal History: menarche: 15 breast fed: yes, age at first : 32 menopause: RIO/BSO at 52 no cancer BCP: 5 years hormones: none Surgical History: 1. RIO/BSO 2. laproscopic knee surgery Medical History: 1. CVA ( mini stroke) 2. rapid heart rate 3. MVP 4. arthritis Social History: smoke: occasional alcohol: occasional drugs: none - Constitutional Constitutional: Denies chills, Denies fever - EENT Comment: freckles in both eyes Eyes: denies blurred vision, denies pain Ears: deny: decreased hearing, tinnitus Ears, nose, mouth and throat: Denies headache, Denies sore throat - Breasts Breasts: bilateral: as per HPI - Cardiovascular Cardiovascular: Reports as per HPI - Respiratory Respiratory: Denies cough, Denies 7 - Gastrointestinal Gastrointestinal: Denies abdominal pain, Denies diarrhea, Denies nausea, Denies vomiting - Genitourinary (Female) Genitourinary: Denies dysuria, Denies hematuria - Menstruation Menstruation: Reports post hysterectomy - Musculoskeletal Comment: arthritis - Integumentary Comment: mole right upper chest wall - Neurological Neurological: Denies numbness, Denies weakness - Psychiatric Psychiatric: Reports anxiety, Denies depression - Endocrine Endocrine: Denies fatigue, Denies weight change - Hematologic/Lymphatic Comment: none - Allergic/Immunologic Allergic/Immunologic: Reports as per HPI Past Medical History Past Medical History: Hyperlipidemia, Hypertension History of Any Multi-Drug Resistant Organisms: None Reported Past Surgical History: Hysterectomy, Orthopedic Surgery Additional Past Surgical History / Comment(s): left knee, breast bx Past Psychological History: Anxiety, Depression Smoking Status: Former smoker Past Alcohol Use History: Occasional Past Drug Use History: None Reported - Past Family History Mother Family Medical History: Cancer, Diabetes Mellitus, Thyroid Disorder Father Family Medical History: Coronary Artery Disease (CAD) Medications and Allergies Home Medications Medication Instructions Recorded Confirmed Type Atorvastatin [Lipitor] 20 mg PO HS 12/15/15 12/14/17 History Venlafaxine HCl [Effexor XR] 300 mg PO HS 12/15/15 12/14/17 History amLODIPine [Norvasc] 5 mg PO HS 12/15/15 12/14/17 History Aliskiren Hemifumarate [Tekturna] 300 mg PO HS 12/14/17 12/14/17 History Cholecalciferol [Vitamin D3 (25 1,000 unit PO DAILY 12/14/17 12/14/17 History Mcg = 1000 Iu)] Fexofenadine HCl [Joy Allergy] 180 mg PO DAILY 12/14/17 12/14/17 History Fish Oil/Dha/Epa [Fish Oil 1,200 1 cap PO DAILY 12/14/17 12/14/17 History mg Fish Oil] Metoprolol Succinate [Toprol Xl] 100 mg PO HS 12/14/17 12/14/17 History Clopidogrel [Plavix] 75 mg PO DAILY #30 tab 12/17/17 Rx Allergies Allergy/AdvReac Type Severity Reaction Status Date / Time cephalexin [From Keflex] Allergy Rash/Hives Verified 05/08/19 16:53 Surgical - Exam BMI 33.8 - General obese - Eyes normal ocular movement - ENT no hearing loss, no congestion - Neck no masses, trachea midline - Respiratory normal respiratory effort, clear to auscultation - Cardiovascular Rhythm: regular Heart Sounds: normal: S1, S2 - Abdomen Abdomen: soft, bowel sounds - Integumentary Probable seborrheic keratosis right chest wall in the area of her bra band - Neurologic no disoriented, no combative - Musculoskeletal normal gait - Psychiatric oriented to time, oriented to person, oriented to place, speech is normal, memory intact Breast examination: BRA : 40DDD Inspection: Right breast larger than left breast no nipple inversion on either breast Palpation: Right breast: Multi-positional exam no dominant masses or nodules of concern Right axilla: No adenopathy of concern Left breast: Multi-positional exam no dominant masses or nodules of concern Left axilla: No adenopathy of concern Results Mammogram and ultrasound results reviewed Assessment and Plan Assessment: Impression: 1. Mammographic and ultrasound abnormality right breast 2. Asymmetry of the breast right larger than the left 3. Fibrocystic breast changes 4. Family history of cancer 5. Patient on Plavix/prior history of CVA and mitral valve prolapse 6. Probable seborrheic keratosis right chest wall Plan: 1. Ultrasound-guided core biopsy of right breast with physician exam following this 2. Stop Plavix and fish oil/ if OK with medical DRAnabel 3. Removal of seborrheic keratosis after core biopsy Cc: Kenisha Palmer Encounter 30 minutes, > 50% of time in planning and counselling Time with Patient: Greater than 30
== END ==
LOC: WWCWWP 16:42
PROVIDERS: ATTEND Surgery
DX: Z53.9 Procedure and treatment not carried out, unspecified reason (principal)

== ENCOUNTER → 2019-05-08 | Outpatient (CLI) | payer BC ==
--- NOTE | 2019-05-09 09:44 | MM ---
Reason for exam: additional evaluation requested from abnormal screening. Last mammogram was performed less than 1 month ago. History: Patient is postmenopausal. Benign excisional biopsy of the right breast, 1992. Took hormonal contraceptives for 8 years. Physical Findings: Nurse did not find any significant physical abnormalities on exam. MG 3D Work Up W/Cad RT Spot compression CC, spot compression MLO, LM, and XCCL view(s) were taken of the right breast. Prior study comparison: April 24, 2019, bilateral MG 3d screening mammo w/cad. September 28, 2017, mammogram, performed at [facility]. The breast tissue is heterogeneously dense. This may lower the sensitivity of mammography. Upper, central slightly lateral architectural distortion persists on additional views, ultrasound will be performed. These results were verbally communicated with the patient and result sheet given to the patient on 05/08/19. ASSESSMENT: Incomplete: need additional imaging evaluation, BI-RAD 0 RECOMMENDATION: Ultrasound of the right breast. (upper outer quadrant, 4-4.5cm from nipple)
--- NOTE | 2019-05-09 09:46 | USB ---
Reason for exam: additional evaluation requested from abnormal screening. History: Patient is postmenopausal. Benign excisional biopsy of the right breast, 1992. Took hormonal contraceptives for 8 years. US Breast Workup Limited RT Right limited breast ultrasound including focal area of concern, retroareolar and axilla demonstrates a 16 x 17 x 17mm irregular, hypoechoic lesion at 11 o'clock for which a biopsy is recommended. These results were verbally communicated with the patient and result sheet given to the patient on 05/08/19. ASSESSMENT: Suspicious, BI-RAD 4 RECOMMENDATION: Ultrasound core biopsy of the right breast. (11 o'clock) Called Dr. Mo's office with mammographic findings and has scheduled an appointment for the patient for 05/08/[address] Chapman. Biopsy scheduled for 06/06/19 at 11:30. PRELIMINARY REPORT CALLED AND FAXED TO DR. CHAPMAN ON 05/08/19.
== END | disposition home or self-care (01) ==
LOC: RADMAMWWP 14:48
PROVIDERS: ATTEND Internal Medicine
DX: R92.8 Other abnormal and inconclusive findings on diagnostic imaging of breast (principal)
CPT/HCPCS: 77061; 77065

== ENCOUNTER → 2019-06-04 | Day surgery (SDC) | payer BC ==
[2019-06-04 09:12] VITALS: RESP 16
[2019-06-04 11:02] VITALS: BP 118/78; PULSE 74; TEMP 98.2
--- NOTE | 2019-06-04 11:03 | USB ---
EXAMINATION TYPE: US biopsy breast VAD RT DATE OF EXAM: 06/04/2019 CLINICAL HISTORY: R92.8. Abnormal mammogram, abnormal breast ultrasound TECHNIQUE: Ultrasound guided core biopsy of right breast. COMPARISON: NONE FINDINGS: The procedure of ultrasound guided core biopsy was explained to the patient. Benefits, alt ernatives, and risks were discussed. An informed consent was then obtained. The patient was placed in supine positioning for imaging and for the procedure. The overlying skin w as prepped and draped in usual sterile fashion. Lidocaine was used as anesthetic into the skin and s ubcutaneous tissue up to area of concern in the right breast upper outer quadrant. A shona was made w ith surgical scalpel. Under ultrasound guidance, a 12-gauge vacuum assisted biopsy gun device was used to obtain 4 core jose alejandro ples. Following this, a biopsy clip was left in lesion. The patient tolerated the procedure well without any immediate complication. The patient was kept in the radiology department for short stay after the procedure and then discharged home in stable condi tion. IMPRESSION: Successful, uncomplicated ultrasound guided core biopsy of area of concern in the right breast, full pathology results to follow.
== END ==
LOC: RADUSWWP 08:51
PROVIDERS: ATTEND Surgery
DX: N60.11 Diffuse cystic mastopathy of right breast (principal); N62 Hypertrophy of breast
CPT/HCPCS: 88305; 19083; A4648; J2001

== ENCOUNTER → 2019-06-10 | Outpatient (CLI) | payer BC ==
--- NOTE | 2019-06-10 16:31 | P.PN ---
Progress Note - Text Progress Note Date: 06/10/19 This is a teleconference on Eliane Flynn. She is a 63-year-old white female who is status post ultrasound-guided core biopsy of an area of concern in the right breast and [id number]. Pathology was benign. The patient was described as a 1.7 x 1.6 cm irregular hypoechoic lesion at 11:00. This was a suspicious BIRADS 4 lesion. No radiologist are available at this time to review the results with. I discussed with the patient that this is benign on the pathology however I wanted to be positive this is concordant. She states that she tolerated the procedure without difficulty. She is not complaining of any fever or bleeding or swelling of the area. The patient understands that this will be reviewed with the radiologist and if this is concordant she will have a repeat right breast mammogram and ultrasound in 6 months with an appointment at that time. If this is considered discordant then she may need additional sampling either repeating ultrasound core biopsy or resection in the operating room. Impression/plan: 1. Ultrasound core biopsy right breast 2. Pathology benign 3. No radiologist available at this time to review to assure that this is concordant this will be reviewed and final recommendation to follow CC: Dr. Mo time: encounter 8 minutes
== END ==
LOC: WWCWWP 16:18
PROVIDERS: ATTEND Surgery
DX: Z53.9 Procedure and treatment not carried out, unspecified reason (principal)

== ENCOUNTER → 2019-06-26 | Outpatient (CLI) | payer BC ==
[2019-06-26 10:26] VITALS: BP 125/83; PULSE 89; RESP 18; TEMP 98.3
--- NOTE | 2019-06-26 10:31 | P.PN ---
Subjective Progress Note Date: 06/26/19 Principal diagnosis: discordant biopsy of the right breast Eliane is a 63-year-old white female who had a routine screening mammogram performed on 3519. This revealed a new central anterior depth focal asymmetry in the right breast. No lesions of concern were in identified in the left breast. An ultrasound of the right breast was performed and this revealed a 16 x 17 mm irregular lesion for which biopsy was recommended. She has no history of any trauma or infection in the right breast. She underwent a core biopsy on 06-04-19. This was benign, however it was reviewed with DR. Guardado and it was felt to be discordant. She tolerated the biopsy without any complaints. Caffiene: 3 cups of coffee/day smoke: occasionally chocolate: daily Family History: mother: thyroid sister: cervical cancer paternal cousin: kidney paternal cousin: breast paternal cousin: pancreatic paternal cousin: spinal cancer/jaw cancer Hormonal History: menarche: 15 breast fed: yes, age at first : 32 menopause: RIO/BSO at 52 no cancer BCP: 5 years hormones: none Surgical History: 1. RIO/BSO 2. laproscopic knee surgery Medical History: 1. CVA ( mini stroke) 2. rapid heart rate 3. MVP 4. arthritis Social History: smoke: occasional alcohol: occasional drugs: none - Constitutional Constitutional: Denies chills, Denies fever - EENT Comment: freckles in both eyes Eyes: denies blurred vision, denies pain Ears: deny: decreased hearing, tinnitus Ears, nose, mouth and throat: Denies headache, Denies sore throat - Breasts Breasts: bilateral: as per HPI - Cardiovascular Cardiovascular: Reports as per HPI - Respiratory Respiratory: Denies cough, - Gastrointestinal Gastrointestinal: Denies abdominal pain, Denies diarrhea, Denies nausea, Denies vomiting - Genitourinary (Female) Genitourinary: Denies dysuria, Denies hematuria - Menstruation Menstruation: Reports post hysterectomy - Musculoskeletal Comment: arthritis - Integumentary Comment: mole right upper chest wall - Neurological Neurological: Denies numbness, Denies weakness - Psychiatric Psychiatric: Reports anxiety, Denies depression - Endocrine Endocrine: Denies fatigue, Denies weight change - Hematologic/Lymphatic Comment: none - Allergic/Immunologic Allergic/Immunologic: Reports as per HPI Past Medical History Past Medical History: Hyperlipidemia, Hypertension History of Any Multi-Drug Resistant Organisms: None Reported Past Surgical History: Hysterectomy, Orthopedic Surgery Additional Past Surgical History / Comment(s): left knee, breast bx Past Psychological History: Anxiety, Depression Smoking Status: Former smoker Past Alcohol Use History: Occasional Past Drug Use History: None Reported - Past Family History Mother Family Medical History: Cancer, Diabetes Mellitus, Thyroid Disorder Father Family Medical History: Coronary Artery Disease (CAD) Medications and Allergies Home Medications Medication Instructions Recorded Confirmed Type Atorvastatin [Lipitor] 20 mg PO HS 12/15/15 12/14/17 History Venlafaxine HCl [Effexor XR] 300 mg PO HS 12/15/15 12/14/17 History amLODIPine [Norvasc] 5 mg PO HS 12/15/15 12/14/17 History Aliskiren Hemifumarate [Tekturna] 300 mg PO HS 12/14/17 12/14/17 History Cholecalciferol [Vitamin D3 (25 1,000 unit PO DAILY 12/14/17 12/14/17 History Mcg = 1000 Iu)] Fexofenadine HCl [Joy Allergy] 180 mg PO DAILY 12/14/17 12/14/17 History Fish Oil/Dha/Epa [Fish Oil 1,200 1 cap PO DAILY 12/14/17 12/14/17 History mg Fish Oil] Metoprolol Succinate [Toprol Xl] 100 mg PO HS 12/14/17 12/14/17 History Clopidogrel [Plavix] 75 mg PO DAILY #30 tab 12/17/17 Rx Allergies Allergy/AdvReac Type Severity Reaction Status Date / Time cephalexin [From Keflex] Allergy Rash/Hives Verified 05/08/19 16:53 Objective - Vital Signs Vital signs: Vital Signs Temp 98.3 F 06/26/19 09:55 Pulse 89 06/26/19 09:55 Resp 18 06/26/19 09:55 BP 125/83 06/26/19 09:55 Pulse Ox 95 06/26/19 09:55 Intake & Output 06/25/19 06/26/19 06/26/19 18:59 06:59 18:59 Weight 83.915 kg - Exam BMI 32.8 - Constitutional General appearance: Present: cooperative - EENT Eyes: Present: EOMI ENT: Present: hearing grossly normal - Neck Neck: Present: normal ROM - Respiratory Respiratory: bilateral: CTA - Cardiovascular Rhythm: regular Heart sounds: normal: S1, S2 - Gastrointestinal General gastrointestinal: Present: normal bowel sounds, soft - Integumentary Integumentary: Present: normal turgor - Musculoskeletal Musculoskeletal: Present: gait normal - Psychiatric Psychiatric: Present: A&O x's 3, appropriate affect, intact judgment & insight - Additional findings Additional findings: Breast exam: BRA 40DDD grade 2/3 ptosis bilateral Inspection: Right breast: Multi-positional exam fibrocystic changes, no dominant masses or nodules of concern Right axilla: No adenopathy of concern Left breast: Multi-positional exam no dominant masses or nodules of concern Left axilla: No adenopathy of concern Assessment and Plan Assessment: Inspection: 1. Discordant breast biopsy right breast 2. Fibrocystic breast changes 3. Normal right chest wall Impra outlined Plan: 1. Needle localization excisional biopsy right breast discordant lesion 2. We have talked about hyperplastic tissue transfer this will be done to close the defect 3. We have talked about using a mastopexy incision and patient would preferred not to have asymmetry, so will not do a mastopecy Risks and benefits of the procedure discussed with the patient. She understands that this is most likely benign however it did appear to be discordant: Reviewed with radiology and therefore we will proceed with resection. Risks include but are not limited to bleeding, infection, possible movement of the needle and missing the location, patient understands and wishes to proceed. We also discussed about the coronavirus situation, and patient understands and wishes to proceed with the procedure. CC: Dr. Mo encounter 20 minutes, > 50% of time in planning and counselling Time with Patient: Less than 30
== END | disposition home or self-care (01) ==
LOC: WWCWWP 09:39
PROVIDERS: ATTEND Surgery
DX: Z53.9 Procedure and treatment not carried out, unspecified reason (principal)

== ENCOUNTER → 2019-07-04 | Outpatient (CLI) | payer BC | END | disposition home or self-care (01) | LOC: LABWHC1 10:36 | PROVIDERS: ATTEND Surgery | DX: U07.1 COVID-19 (principal) | CPT/HCPCS: 87635 ==

== ENCOUNTER 2019-07-08 09:09 | Day surgery (SDC) | payer BC ==
[2019-07-07 09:50] VITALS: BMI 33.8
[~2019-07-08 09:09] MED LIST: DEXAMETHASONE SOD PHOSPHATE 10 MG/ML 1 ML VIAL IV ONE; HEPARIN SODIUM,PORCINE 5,000 UNIT/ML 1 ML VIAL SQ ONE; HYDROmorphone 0.5 MG/0.5 ML SYRINGE IVP PRN; LACTATED RINGERS 1,000 ML IV SCH; LIDOCAINE 1% (10MG/ML) FOR IV START INTRADERMA PRN; MIDAZOLAM 2 MG/2 ML VIAL IV PRN; ONDANSETRON 4 MG/2 ML VIAL IVP ONE; Pre Op ABX Message 1 EACH MISC MISCELLANE ONE
[2019-07-08] MEDS ORDERED: ALPRAZolam 0.25 MG TAB PO ONE (09:38)
[2019-07-08] MEDS ORDERED: LIDOCAINE 1% (10MG/ML) FOR IV START INTRADERMA ONE (09:46)
[2019-07-08] MEDS ORDERED: LIDOCAINE 1% INJ 10MG/ML (20 ML MDV) SQ ONE (10:33)
[2019-07-08] MEDS ORDERED: SUCCINYLCHOLINE CHLORIDE 100 MG/5 ML SYR IV ONE (12:30)
[2019-07-08] MEDS ORDERED: KETOROLAC 30 MG/ML 1 ML VIAL ONE (12:30)
[2019-07-08] MEDS ORDERED: DEXAMETHASONE SOD PHOS (MDV) 100 MG/10 ML VIAL ONE (12:30)
[2019-07-08] MEDS ORDERED: PROPOFOL 10 MG/ML 20 ML VIAL IV ONE (12:30)
[2019-07-08] MEDS ORDERED: PHENYLEPHRINE-0.9% NACL SYG 1 MG/10 ML SYRINGE ONE (12:30)
[2019-07-08] MEDS ORDERED: fentaNYL (PF) 50 MCG/ML 2 ML AMP ONE (12:30)
[2019-07-08] MEDS ORDERED: MIDAZOLAM 2 MG/2 ML VIAL ONE (12:30)
[2019-07-08] MEDS ORDERED: LIDOCAINE 2% INJ 20 MG/ML SQ ONE (12:30)
[2019-07-08] MEDS ORDERED: LACTATED RINGERS 1,000 ML IV ONE ×2 (12:56→14:28)
--- NOTE | 2019-07-08 13:18 | P.OP ---
Date of Procedure: 07/08/19 Preoperative Diagnosis: Discordant core biopsy right breast Postoperative Diagnosis: Same Procedure(s) Performed: Localization excisional lumpectomy right breast Anesthesia: KIARRAA Surgeon: Ashlyn Chapman Estimated Blood Loss (ml): 5 IV fluids (ml): 1,000 Pathology: other (breast tissue) Condition: stable Disposition: same day Indications for Procedure: Discordant core biopsy right breast Operative Findings: Fibrofatty breast tissue Description of Procedure: The patient is a 63-year-old white female who underwent an ultrasound-guided core biopsy of the right breast. Pathology was benign, this was felt to be discordant however with the radiographic findings. It was therefore recommended she undergo needle localization and excisional lumpectomy patient understood and wished to proceed. The patient was entered first to the radiology department and needle localization of the area of concern was performed. The patient then came to the operating room. The breast was prepped and draped in a sterile fashion following induction of anesthesia. A circumareolar incision was made. This was carried down to the shaft of the needle which was followed to the tip of the needle and the surrounding tissue was excised. The tissue was very fibrofatty. The wound was then irrigated. After we assured that hemostasis was attained titanium clips were placed. The specimen was painted for orientation. Radiograph the specimen was performed. The patient tolerated the procedure in stable condition. The deep tissues were closed using a Vicryl suture. The skin was closed using a 4-0 Monocryl and Steri-Strips applied.
--- NOTE | 2019-07-08 13:26 | P.DS ---
Providers Attending physician: Ashlyn Chapman Primary care physician: Davy Mo Plan - Discharge Summary Discharge Rx Participant: Yes New Discharge Prescriptions: No Action amLODIPine [Norvasc] 5 mg PO HS Venlafaxine HCl [Effexor XR] 150 mg PO BID Atorvastatin [Lipitor] 20 mg PO HS Metoprolol Succinate [Toprol Xl] 100 mg PO HS Cholecalciferol [Vitamin D3 (25 Mcg = 1000 Iu)] 2,000 unit PO QAM Aliskiren Hemifumarate [Tekturna] 300 mg PO HS Clopidogrel [Plavix] 75 mg PO HS Aspirin [Adult Low Dose Aspirin EC] 81 mg PO HS Ubidecarenone [Co Q-10] 200 mg PO DAILY [place]-3 Fatty Acids/Fish Oil [Fish Oil 1,000 mg Softgel] 1 each PO DAILY Multivit-Min/Iron/Folic/Lutein [Centrum Silver Women Tablet] 1 each PO DAILY L.acidoph,Paracasei, B.lactis [Probiotic] 1 each PO DAILY Discharge Medication List Atorvastatin [Lipitor] 20 mg PO HS 12/15/15 [History] Venlafaxine HCl [Effexor XR] 150 mg PO BID 12/15/15 [History] amLODIPine [Norvasc] 5 mg PO HS 12/15/15 [History] Aliskiren Hemifumarate [Tekturna] 300 mg PO HS 12/14/17 [History] Cholecalciferol [Vitamin D3 (25 Mcg = 1000 Iu)] 2,000 unit PO QAM 12/14/17 [History] Metoprolol Succinate [Toprol Xl] 100 mg PO HS 12/14/17 [History] Clopidogrel [Plavix] 75 mg PO HS 05/08/19 [History] Aspirin [Adult Low Dose Aspirin EC] 81 mg PO HS 05/28/19 [History] L.acidoph,Paracasei, B.lactis [Probiotic] 1 each PO DAILY 07/07/19 [History] Multivit-Min/Iron/Folic/Lutein [Centrum Silver Women Tablet] 1 each PO DAILY 07/07/19 [History] [place]-3 Fatty Acids/Fish Oil [Fish Oil 1,000 mg Softgel] 1 each PO DAILY 07/07/19 [History] Ubidecarenone [Co Q-10] 200 mg PO DAILY 07/07/19 [History] Follow up Appointment(s)/Referral(s): Ashlyn Chapman MD [STAFF PHYSICIAN] - 1 Week Activity/Diet/Wound Care/Special Instructions: do not drive for 24 hours after discharge, or if taking narcotic pain medicine may shower after 48 hours wear bra at all times Discharge Disposition: HOME SELF-CARE
[2019-07-08 13:55] VITALS: TEMP 96.8
[2019-07-08 14:04] VITALS: RESP 16
[2019-07-08 15:05] VITALS: BP 126/80; PULSE 95
--- NOTE | 2019-07-08 15:25 | MM ---
EXAMINATION TYPE: MG pre op needle loc RT, MG surgical specimen RT DATE OF EXAM: 07/08/2019 COMPARISON: Prior ultrasound June 04, 2019 and older ultrasound and mammogram studies. CLINICAL HISTORY: Benign right breast biopsy June 03 but possible discordance per breast surgeon. TECHNIQUE: Needle localization with wire placement and surgical excision of area of concern in the right breast. FINDINGS: The procedure of needle localization with wire placement and than surgical excision was explained to the patient. Benefits, alternatives, and risks were discussed. An informed consent was then obtained. The shortest pathway for procedure was chosen. Shortest pathway was lateral approach. The overlying skin was prepped and draped in usual sterile fashion. Lidocaine buffered with bicarbonate was used as anesthetic into the skin and subcutaneous tissue up to the level of area of concern. A 5 cm needle was used. It was placed via a lateral approach under mammographic guidance. Subsequent 90 degrees mammogram show the needle to be in satisfactory position relative to the targeted area. At this point, wire was placed and the needle was withdrawn. The wire was fixed to patient's skin. Images were marked for surgeon. The patient tolerated the procedure well without any immediate complication. The patient was kept in the radiology department for short stay after the procedure and then taken to surgery for surgical excision. Targeted biopsy clip and wire are identified in specimen mammogram. The patient was kept in hospital for short stay after the procedure and then discharged home in stable condition. IMPRESSION: Successful, uncomplicated needle localization with wire placement and surgical excision of targeted biopsy clip in the right breast, full pathology results to follow. Low to intermediate index of suspicion procedure. Pathology Results: High Risk RIGHT BREAST, NEEDLE LOCALIZATION EXCISION: Intraductal papillomas, margins negative. Background fibrocystic changes including moderate usual type ductal hyperplasia, cysts, fibrosis, and apocrine metaplasia. Previous biopsy site. Recommendation Follow up mammogram of the right breast in 6 months. [facility]
== END 2019-07-08 15:18 | disposition home or self-care (01) ==
LOC: OR 09:09
PROVIDERS: ATTEND Surgery
DX: D24.1 Benign neoplasm of right breast (principal); N60.11 Diffuse cystic mastopathy of right breast; N60.81 Other benign mammary dysplasias of right breast; Z88.1 Allergy status to other antibiotic agents; Z98.890 Other specified postprocedural states; Z79.899 Other long term (current) drug therapy; Z79.02 Long term (current) use of antithrombotics/antiplatelets; Z79.82 Long term (current) use of aspirin
CPT/HCPCS: 88307; 76098; 19281; J2001 ×2; J2250; J1644; J1100 ×2; J2405; J3010; J1885; J2370; J0330; J2704

== ENCOUNTER → 2019-07-18 | Outpatient (CLI) | payer BC ==
[2019-07-18 14:24] VITALS: BP 115/76; PULSE 75; RESP 18; TEMP 97.7
--- NOTE | 2019-07-18 14:40 | P.PN ---
Progress Note - Text Progress Note Date: 07/18/19 Eliane is a 63-year-old white female status post right breast biopsy on . Pathology revealed intraductal papillomas, margins negative. The patient since her procedure noted in the area of protuberance on the top of her palate. It is tender when she tries to swallow. It is not changed in size. It is not draining anything. She has not had any fever or chills. Physical exam: Lungs: Clear Heart: Regular rate and rhythm Right breast: Incision clean and dry Dorsum of mouth/ approximately a 11/2-2 cm in length protuberance with some excoriation in the midportion of it, this appears to be firm Impression: 1. Right breast biopsy pathology benign plan repeat right breast mammogram in 6 months time with physician exam 2. Appointment with the dentist/S surgeon Plan: 1. Right breast mammogram and physician exam in 6 months 2. Patient states that she has her own dentist and like to follow up with him she will then follow with her neurosurgeon if it is felt to be necessary CC: Kenisha Garcia
== END | disposition home or self-care (01) ==
LOC: WWCWWP 14:13
PROVIDERS: ATTEND Surgery
DX: Z53.9 Procedure and treatment not carried out, unspecified reason (principal)

== ENCOUNTER → 2020-01-12 | Outpatient (CLI) | payer BC ==
--- NOTE | 2020-01-12 12:18 | MM ---
Reason for exam: additional evaluation requested from prior study. Last mammogram was performed 8 months ago. History: Patient is postmenopausal and has history of high-risk lesion on a previous biopsy at age 63. High risk MG pre op needle loc RT of the right breast, July 08, 2019. Benign US biopsy breast VAD RT of the right breast, June 04, 2019. Benign excisional biopsy of the right breast, 1992. Took hormonal contraceptives for 8 years. Physical Findings: Nurse did not find any significant physical abnormalities on exam. MG 3D Diag Mammo W/Cad RT CC and MLO view(s) were taken of the right breast. Prior study comparison: May 08, 2019, right breast MG 3d work up w/cad RT. April 24, 2019, bilateral MG 3d screening mammo w/cad. Post surgical changes right subareolar. No significant new findings when compared with previous films. These results were verbally communicated with the patient and result sheet given to the patient on 01/12/20. ASSESSMENT: Benign, BI-RAD 2 RECOMMENDATION: Return to routine screening mammogram schedule for both breasts. Back on schedule for March 2020.
== END | disposition home or self-care (01) ==
LOC: RADMAMWWP 10:07
PROVIDERS: ATTEND Surgery
DX: R92.8 Other abnormal and inconclusive findings on diagnostic imaging of breast (principal)
CPT/HCPCS: 77061; 77065

== ENCOUNTER 2021-05-29 00:15 | Observation (INO) | payer BC ==
[2021-05-29 00:34] LABS: Glucose,Whole Blood 143 mg/dL (75-99)
--- NOTE | 2021-05-29 00:53 | XR ---
EXAMINATION TYPE: XR chest 1V DATE OF EXAM: 05/29/2021 COMPARISON: 12/14/2017 HISTORY: Altered mental status TECHNIQUE: Single view FINDINGS: Heart and mediastinum are normal. Lungs are clear. Diaphragm is normal. Bony thorax is inta ct. Pulmonary vascularity is normal. IMPRESSION: Normal chest. There is clearing of the minimal atelectasis left lung base compared to old exam.
[2021-05-29 00:58] LABS: Basophils # (A) 0.1 k/uL (0-0.2); Basophils % (A) 1 %; Eosinophils # (A) 0.3 k/uL (0-0.7); Eosinophils % (A) 3 %; HCT 41.4 % (34.0-46.0); HGB 13.7 gm/dL (11.4-16.0); Lymphocytes % (A) 26 %; MCH 28.9 pg (25.0-35.0); MCHC 33.1 g/dL (31.0-37.0); MCV 87.1 fL (80.0-100.0); Mean Platelet Volume 8.1; Monocytes # (A) 0.4 k/uL (0-1.0); Monocytes % (A) 5 %; Neutrophils # (A) 4.8 k/uL (1.3-7.7); Neutrophils % (A) 63 %; Platelet Count 243 k/uL (150-450); RBC 4.75 m/uL (3.80-5.40); WBC 7.6 k/uL (3.8-10.6)
--- NOTE | 2021-05-29 01:04 | CT ---
EXAMINATION TYPE: CT brain wo con for TPA DATE OF EXAM: 05/29/2021 COMPARISON: 12/14/2017 HISTORY: code stroke CT DLP: 1704.5 mGycm Automated exposure control for dose reduction was used. Ventricles have normal size. There is no mass effect or midline shift. There is no evidence of intrac ranial hemorrhage. Calvarium is intact. There is normal aeration of the mastoid sinuses. IMPRESSION: Negative unenhanced scan. No change compared to old exam
[2021-05-29 01:06] LABS: INR 0.9 (<1.2); Partial Thromboplastin Time 23.4 sec (22.0-30.0); Prothrombin Time 10.2 sec (9.0-12.0)
[2021-05-29] MEDS ORDERED: SODIUM CHLORIDE 0.9% 1,000 ML IV ONE (01:10)
[2021-05-29] MEDS ORDERED: ASPIRIN 325 MG TAB PO STA (01:10)
[2021-05-29] MEDS ORDERED: TICAGRELOR 90 MG TAB PO STA (01:10)
[2021-05-29 01:14] LABS: ALT 43 U/L (4-34); AST 39 U/L (14-36); African American GFR (CKD) >90 (>60 ml/min/1.73 sqM); Albumin 4.6 g/dL (3.5-5.0); Alkaline Phosphatase 144 U/L (38-126); Anion Gap 10 mmol/L; Blood Urea Nitrogen 16 mg/dL (7-17); Calcium 9.5 mg/dL (8.4-10.2); Carbon Dioxide 23 mmol/L (22-30); Chloride 107 mmol/L (98-107); Glucose 137 mg/dL (74-99); Non-African American GFR(CKD) 82 (>60 ml/min/1.73 sqM); Potassium 3.8 mmol/L (3.5-5.1); Sodium 140 mmol/L (137-145); Total Bilirubin 0.5 mg/dL (0.2-1.3); Total Protein 7.5 g/dL (6.3-8.2)
--- NOTE | 2021-05-29 01:14 | CT ---
EXAMINATION TYPE: CT angio head neck DATE OF EXAM: 05/29/2021 COMPARISON: None HISTORY: code stroke CT DLP: 1704.5 mGycm Automated exposure control for dose reduction was used. CONTRAST: Performed with IV Contrast, patient injected with 65 mL of Isovue 370. Images obtained from the aortic arch to the vertex of the brain with IV contrast. There are 3-D post processed images. There is normal branching pattern of the great vessels on the aortic arch. There is arterial flow in both subclavian arteries. There is arterial flow in the common internal and external carotid arteries bilaterally. There is wide patency of the carotid artery bifurcations. There is arterial flow in bot h vertebral arteries. No evidence of carotid or vertebral artery aneurysm or dissection. There is arterial flow in the anterior middle and posterior cerebral arteries bilaterally. There is n o mass effect. No evidence of intracranial aneurysm or neovascularity. No evidence of hemodynamic estela nosis. There is normal enhancement of the venous sinuses. IMPRESSION: Negative CT angiogram of the neck. Negative CT angiogram of the brain.
[2021-05-29] MEDS ORDERED: ACETAMINOPHEN TAB 325 MG TAB PO PRN (03:08)
--- NOTE | 2021-05-29 04:11 | ED ---
Neuro HPI - General Chief Complaint: Altered Mental Status Stated Complaint: confusion Time Seen by Provider: 05/29/21 00:29 Source: patient Mode of arrival: ambulatory Limitations: no limitations - History of Present Illness Is the patient presenting with stroke symptoms?: Yes Last Known Well Date: 05/29/21 Last Known Well Time: 23:29 -: minutes(s) Initial Comments: This patient is a 65-year-old woman who presents to be evaluated for possible stroke like symptoms. History is from both the patient and her . They had gone for dinner and then after word the patient was getting ready for bed. Patient's noted that she seemed to just stop and be staring off. He states that when he tried to speak with her she was having difficulty speaking and it seemed like her speech was slurred. There may have been a little bit of facial droop. He states that this was similar to what she had in 2018 when she was diagnosed with TIA. The patient denies headache. She is denying any focal weakness. She is not having chest, back or abdominal pain. No change in vision or swallowing. She believes her speech may be a little better and sleeping home Location: speech History of same: Yes Place: home Severity: mild Improves With: none Worsens With: none On Anticoagulants: No Context: sudden onset Associated Symptoms: denies other symptoms Treatments Prior to Arrival: none - Related Data Home Medications: Home Medications Medication Instructions Recorded Confirmed Atorvastatin [Lipitor] 40 mg PO HS 12/15/15 05/29/21 Venlafaxine HCl [Effexor XR] 150 mg PO BID 12/15/15 05/29/21 amLODIPine [Norvasc] 5 mg PO HS 12/15/15 05/29/21 Cholecalciferol [Vitamin D3 (25 2,000 unit PO QAM 12/14/17 05/29/21 Mcg = 1000 Iu)] Metoprolol Succinate [Toprol Xl] 100 mg PO HS 12/14/17 05/29/21 Clopidogrel [Plavix] 75 mg PO HS 05/08/19 05/29/21 Aspirin [Adult Low Dose Aspirin EC] 81 mg PO HS 05/28/19 05/29/21 L.acidoph,Paracasei, B.lactis 1 each PO DAILY 07/07/19 05/29/21 [Probiotic] Multivit-Min/Iron/Folic/Lutein 1 each PO DAILY 07/07/19 05/29/21 [Centrum Silver Women Tablet] Harper-3 Fatty Acids/Fish Oil [Fish 1 each PO DAILY 07/07/19 05/29/21 Oil 1,000 mg Softgel] Ubidecarenone [Co Q-10] 200 mg PO DAILY 07/07/19 05/29/21 Losartan/Hydrochlorothiazide mg PO HS 05/29/21 [Losartan-Hctz 100-25 mg Tab] Allergies/Adverse Reactions: Allergies Allergy/AdvReac Type Severity Reaction Status Date / Time cephalexin [From Keflex] Allergy Rash/Hives Verified 05/29/21 00:17 Review of Systems ROS Statement: Those systems with pertinent positive or pertinent negative responses have been documented in the HPI. ROS Other: All systems not noted in ROS Statement are negative. Constitutional: Denies: fever, weakness Eyes: Denies: vision change Respiratory: Denies: cough, dyspnea Cardiovascular: Denies: chest pain, palpitations, syncope Gastrointestinal: Denies: abdominal pain, vomiting, diarrhea Genitourinary: Denies: dysuria, hematuria Musculoskeletal: Denies: back pain Skin: Denies: rash Neurological: Reports: as per HPI, confusion. Denies: headache, weakness, numbness, paresthesias Hematological/Lymphatic: Denies: easy bleeding General Exam Limitations: no limitations General appearance: alert, in no apparent distress Head exam: Present: atraumatic, normocephalic Eye exam: Present: normal appearance. Absent: scleral icterus, conjunctival injection ENT exam: Present: normal oropharynx Neck exam: Present: normal inspection, full ROM Respiratory exam: Present: normal lung sounds bilaterally. Absent: respiratory distress, wheezes, rales, rhonchi, stridor Cardiovascular Exam: Present: regular rate, normal rhythm, normal heart sounds. Absent: systolic murmur, diastolic murmur, rubs, gallop GI/Abdominal exam: Present: soft. Absent: distended, tenderness, guarding, rebound, rigid, mass Extremities exam: Present: normal inspection, normal capillary refill. Absent: pedal edema, calf tenderness Back exam: Present: normal inspection. Absent: CVA tenderness (R), CVA tenderness (L) Neurological exam: Present: alert, oriented X3, CN II-XII intact. Absent: motor sensory deficit Skin exam: Present: warm, dry, intact, normal color. Absent: rash Stroke MDM - Lab Data Result diagrams: 05/29/21 00:30 05/29/21 00:30 Lab Results 05/29/21 05/29/21 05/29/21 Range/Units 00:30 00:30 00:30 WBC 7.6 (3.8-10.6) k/uL RBC 4.75 (3.80-5.40) m/uL Hgb 13.7 (11.4-16.0) gm/dL Hct 41.4 (34.0-46.0) % MCV 87.1 (80.0-100.0) fL MCH 28.9 (25.0-35.0) pg MCHC 33.1 (31.0-37.0) g/dL RDW 13.0 (11.5-15.5) % Plt Count 243 (150-450) k/uL MPV 8.1 Neutrophils % 63 % Lymphocytes % 26 % Monocytes % 5 % Eosinophils % 3 % Basophils % 1 % Neutrophils # 4.8 (1.3-7.7) k/uL Lymphocytes # 2.0 (1.0-4.8) k/uL Monocytes # 0.4 (0-1.0) k/uL Eosinophils # 0.3 (0-0.7) k/uL Basophils # 0.1 (0-0.2) k/uL PT 10.2 (9.0-12.0) sec INR 0.9 (<1.2) APTT 23.4 (22.0-30.0) sec Sodium (137-145) mmol/L Potassium (3.5-5.1) mmol/L Chloride (98-107) mmol/L Carbon Dioxide (22-30) mmol/L Anion Gap mmol/L BUN (7-17) mg/dL Creatinine (0.52-1.04) mg/dL Est GFR (CKD-EPI)AfAm (>60 ml/min/1.73 sqM) Est GFR (CKD-EPI)NonAf (>60 ml/min/1.73 sqM) Glucose (74-99) mg/dL POC Glucose (mg/dL) 143 H (75-99) mg/dL POC Glu Hob Machine Operator ID Ailyn, Jaydon Calcium (8.4-10.2) mg/dL Total Bilirubin (0.2-1.3) mg/dL AST (14-36) U/L ALT (4-34) U/L Alkaline Phosphatase (38-126) U/L Troponin I (0.000-0.034) ng/mL Total Protein (6.3-8.2) g/dL Albumin (3.5-5.0) g/dL 05/29/21 05/29/21 Range/Units 00:30 00:30 WBC (3.8-10.6) k/uL RBC (3.80-5.40) m/uL Hgb (11.4-16.0) gm/dL Hct (34.0-46.0) % MCV (80.0-100.0) fL MCH (25.0-35.0) pg MCHC (31.0-37.0) g/dL RDW (11.5-15.5) % Plt Count (150-450) k/uL MPV Neutrophils % % Lymphocytes % % Monocytes % % Eosinophils % % Basophils % % Neutrophils # (1.3-7.7) k/uL Lymphocytes # (1.0-4.8) k/uL Monocytes # (0-1.0) k/uL Eosinophils # (0-0.7) k/uL Basophils # (0-0.2) k/uL PT (9.0-12.0) sec INR (<1.2) APTT (22.0-30.0) sec Sodium 140 (137-145) mmol/L Potassium 3.8 (3.5-5.1) mmol/L Chloride 107 (98-107) mmol/L Carbon Dioxide 23 (22-30) mmol/L Anion Gap 10 mmol/L BUN 16 (7-17) mg/dL Creatinine 0.77 (0.52-1.04) mg/dL Est GFR (CKD-EPI)AfAm >90 (>60 ml/min/1.73 sqM) Est GFR (CKD-EPI)NonAf 82 (>60 ml/min/1.73 sqM) Glucose 137 H (74-99) mg/dL POC Glucose (mg/dL) (75-99) mg/dL POC Glu Hob Machine Operator ID Calcium 9.5 (8.4-10.2) mg/dL Total Bilirubin 0.5 (0.2-1.3) mg/dL AST 39 H (14-36) U/L ALT 43 H (4-34) U/L Alkaline Phosphatase 144 H (38-126) U/L Troponin I <0.012 (0.000-0.034) ng/mL Total Protein 7.5 (6.3-8.2) g/dL Albumin 4.6 (3.5-5.0) g/dL - Medical Decision Making This patient is 65-year-old woman presenting with symptoms similar to previously diagnosed TIA. By arrival here, the patient's main symptom was some possible mild dysarthria. The patient was seen and sent for computed tomography scan. I discussed the case with stroke team. After review of CT, the patient only has an NIH score of 1 for speech and it is felt that risks of TPA do outweighed benefits. When I really valve the patient after her CT her speech does seem to be improved. Further discussion with stroke team and patient will be admitted to have neurology consultation. Patient does seem to be back at baseline per . - EKG Data -: EKG Interpreted by Me EKG shows normal: sinus rhythm (Rate 91 bpm), axis (Normal), intervals (Normal), QRS complexes (Possible old inferior MT), ST-T waves (Normal) Rate: normal Past Medical History Past Medical History: CVA/TIA, Hyperlipidemia, Hypertension, Sleep Apnea/CPAP/BIPAP Additional Past Medical History / Comment(s): TIA Nov 2017, VERTIGO , USES C- PAP, RUPTURED DISC., DERMATITIS ON CHIN, MITRAL VALVE PROLAPSE. History of Any Multi-Drug Resistant Organisms: None Reported Past Surgical History: Breast Surgery, Hysterectomy, Orthopedic Surgery Additional Past Surgical History / Comment(s): left knee, breast bx Past Anesthesia/Blood Transfusion Reactions: No Reported Reaction, Motion Sickness Past Psychological History: Anxiety, Depression Smoking Status: Never smoker Past Alcohol Use History: Occasional Past Drug Use History: None Reported - Past Family History Mother Family Medical History: Cancer, Diabetes Mellitus, Deep Vein Thrombosis (DVT), Thyroid Disorder Additional Family Medical History / Comment(s): THYROID CANCER Father Family Medical History: Coronary Artery Disease (CAD) Sister(s) Family Medical History: Cancer Additional Family Medical History / Comment(s): CERVICAL CANCER Course Vital Signs 05/29/21 05/29/2105/29/22 00:17 00:45 01:00 Temperature 97.4 F L Pulse Rate 108 H 92 88 Respiratory 16 18 18 Rate Blood Pressure 176/102 143/90 137/82 O2 Sat by Pulse 98 98 98 Oximetry 05/29/21 05/29/21 05/29/21 01:15 04:00 05:15 Temperature 98.7 F Pulse Rate 87 80 84 Respiratory 18 18 18 Rate Blood Pressure 131/85 128/77 125/72 O2 Sat by Pulse 98 98 98 Oximetry 05/29/21 06:15 Temperature Pulse Rate 67 Respiratory 18 Rate Blood Pressure 109/77 O2 Sat by Pulse 98 Oximetry Critical Care Time Critical Care Time: Yes (30 minutes) Disposition Clinical Impression: TIA (transient ischemic attack) Disposition: ADMITTED IP TO THIS [facility] Condition: Good Is patient prescribed a controlled substance at d/c from ED?: No
[2021-05-29] MEDS: SODIUM CHLORIDE 0.9% 1,000 ML IV SCH ×3 (04:15→20:40)
[2021-05-29] MEDS ORDERED: ATORVASTATIN 80 MG TAB PO STA (04:48)
--- NOTE | 2021-05-29 04:50 | P.HPIM ---
History of Present Illness H&P Date: 05/29/21 The patient is a 65-year-old female with a PMH of TIA, hypertension, hyperlipidemia, anxiety who presents to the emergency room for episode of confusion and slurred speech. The patient reports that she was in her house getting ready to go to bed when her noticed that she was standing in lee ce staring off, and appeared confused. He then asked her a few questions to which she was unable to answer appropriately and he noticed that her speech was slurred. The patient reports that it took roughly 2 hours for her symptoms gradually dissipate, and that she reports feeling back to her baseline at time of interview. She denied experiencing any weakness, numbness, or tingling. Also denied visual disturbances. Further denied chest discomfort, shortness of breath, fever, chills, cough, nausea, vomiting, abdominal pain, diarrhea. CT brain and angiography were unremarkable with EKG showing sinus rhythm at 91 bpm with Q waves in inferior leads II, III, and aVF. Laboratory evaluation was unremarkable. Review of systems: Pertinent positives and negatives as discussed in HPI, a complete review of systems was performed and all other systems are negative. Physical examination: General: non toxic, no distress, appears at stated age, obese Derm: no unusual rashes/lesions no unusual ecchymoses, warm, dry Head: atraumatic, normocephalic, symmetric Eyes: EOMI, no lid lag, anicteric sclera, pupils equal round reactive to light ENT: Nose and ears atraumatic, no thrush, no pharyngeal erythema Neck: No thyromegaly, no cervical lymphadenopathy, trachea midline, supple Mouth: no lip lesion, mucus membranes moist Cardiovascular: S1S2 reg, no murmur, positive posterior tibial pulse bilateral, no edema, capillary refill less than 2 seconds Lungs: CTA bilateral, no rhonchi, no rales , no accessory muscle use Abdominal: soft, nontender to palpation, no guarding, no appreciable organo megaly, normal bowel sounds Ext: no gross muscle atrophy, muscle strength 5 out of 5 in all 4 extremities grossly, no contractures, Neuro: CN II-XI grossly intact, light touch intact all 4 extremities, finger to nose within normal limits, no pronator drift Psych: Alert, oriented, appropriate affect Assessment/plan TIA -Neurology consult -Continue with aspirin, statin -Echocardiogram -Cardiac monitoring Borderline LFTs -Obtain right upper quadrant ultrasound Chronic conditions: Hypertension, hyperlipidemia, anxiety -Continue with home meds DVT prophylaxis -Heparin subq The patient is admitted with an anticipated less than 2 midnight stay for evaluation of TIA CODE STATUS: Full Code Discussed with: Patient Anticipated discharge date: in am Anticipated discharge place: Home Past Medical History Past Medical History: CVA/TIA, Hyperlipidemia, Hypertension, Sleep Apnea/CPAP/BIPAP Additional Past Medical History / Comment(s): TIA Nov 2017, VERTIGO , USES C- PAP, RUPTURED DISC., DERMATITIS ON CHIN, MITRAL VALVE PROLAPSE. History of Any Multi-Drug Resistant Organisms: None Reported Past Surgical History: Breast Surgery, Hysterectomy, Orthopedic Surgery Additional Past Surgical History / Comment(s): left knee, breast bx Past Anesthesia/Blood Transfusion Reactions: No Reported Reaction, Motion Sickness Past Psychological History: Anxiety, Depression Smoking Status: Never smoker Past Alcohol Use History: Occasional Past Drug Use History: None Reported - Past Family History Mother Family Medical History: Cancer, Diabetes Mellitus, Deep Vein Thrombosis (DVT), Thyroid Disorder Additional Family Medical History / Comment(s): THYROID CANCER Father Family Medical History: Coronary Artery Disease (CAD) Sister(s) Family Medical History: Cancer Additional Family Medical History / Comment(s): CERVICAL CANCER Medications and Allergies Home Medications Medication Instructions Recorded Confirmed Type Atorvastatin [Lipitor] 20 mg PO HS 12/15/15 07/18/19 History Venlafaxine HCl [Effexor XR] 150 mg PO BID 12/15/15 07/18/19 History amLODIPine [Norvasc] 5 mg PO HS 12/15/15 07/18/19 History Aliskiren Hemifumarate [Tekturna] 300 mg PO HS 12/14/17 07/18/19 History Cholecalciferol [Vitamin D3 (25 2,000 unit PO QAM 12/14/17 07/18/19 History Mcg = 1000 Iu)] Metoprolol Succinate [Toprol Xl] 100 mg PO HS 12/14/17 07/18/19 History Clopidogrel [Plavix] 75 mg PO HS 05/08/19 07/18/19 History Aspirin [Adult Low Dose Aspirin EC] 81 mg PO HS 05/28/19 07/18/19 History L.acidoph,Paracasei, B.lactis 1 each PO DAILY 07/07/19 07/18/19 History [Probiotic] Multivit-Min/Iron/Folic/Lutein 1 each PO DAILY 07/07/19 07/18/19 History [Centrum Silver Women Tablet] Hope-3 Fatty Acids/Fish Oil [Fish 1 each PO DAILY 07/07/19 07/18/19 History Oil 1,000 mg Softgel] Ubidecarenone [Co Q-10] 200 mg PO DAILY 07/07/19 07/18/19 History Allergies Allergy/AdvReac Type Severity Reaction Status Date / Time cephalexin [From Keflex] Allergy Rash/Hives Verified 05/29/21 00:17 Physical Exam Vitals: Vital Signs Temp Pulse Resp BP Pulse Ox 05/29/21 04:00 80 18 128/77 98 05/29/21 01:15 87 18 131/85 98 05/29/21 01:00 88 18 137/82 98 05/29/21 00:45 92 18 143/90 98 05/29/21 00:17 97.4 F L 108 H 16 176/102 98 Intake and Output 05/28/21 05/28/21 05/29/21 14:59 22:59 06:59 Other: Weight 82 kg Results CBC & Chem 7: 05/29/21 00:30 05/29/21 00:30 Labs: Abnormal Lab Results - Last 24 Hours (Table) 05/29/21 05/29/21 Range/Units 00:30 00:30 Glucose 137 H (74-99) mg/dL POC Glucose (mg/dL) 143 H (75-99) mg/dL AST 39 H (14-36) U/L ALT 43 H (4-34) U/L Alkaline Phosphatase 144 H (38-126) U/L
[2021-05-29] MEDS: DOCUSATE 100 MG CAP PO SCH ×3 (09:47→20:42)
[2021-05-29] MEDS: FAMOTIDINE 20 MG TAB PO SCH ×2 (09:48→20:39)
[2021-05-29] MEDS: HEPARIN SODIUM,PORCINE/PF 5,000 UNIT/0.5 ML SYRINGE SQ SCH ×3 (09:49→23:31)
--- NOTE | 2021-05-29 10:31 | US ---
EXAMINATION TYPE: US abdomen limited DATE OF EXAM: 05/29/2021 COMPARISON: NONE CLINICAL HISTORY: abnormal lft. Abnormal LFT. EXAM MEASUREMENTS: Liver Length: 16.6 cm Gallbladder Wall: 0.20 cm CBD: 0.64 cm Right Kidney: 12.4 x 6.1 x 5.7 cm Limited due to gas. Pancreas: Tail not well seen due to gas. Liver: Increased echogenicity, appears coarse in echotexture. Indistinct, hypoechoic area seen adjace nt to the carmen hepatis suggestive of possible focal fatty sparin.6 x 2.0 x 1.6 cm. Gallbladder: Two hyperechoic foci seen within the gallbladder neck, larger area measures 0.9 x 0.7 x 0.5 cm. Evidence for sonographic Villanueva's sign: No CBD: Measures upper limits of normal. Right Kidney: Measures upper limits of normal versus minimally enlarged. Slightly lobulated contour. Hypoechoic area seen medially: 1.6 x 1.6 x 1.3 cm. Hypoechoic area seen laterally: 1.6 x 1.5 x 1.2 cm . Suboptimal study. Visualized pancreas within normal limits. Visualized liver heterogeneously hyperech oic. Evaluation for focal masses suboptimal due to the heterogeneity. No surrounding ascites. No righ t-sided hydronephrosis. Technologist marked to areas 1 to 2 cm in size that are hypoechoic and anecho ic favoring benign thin-walled cysts. This can be confirmed with outpatient nonemergent renal protoco l CT or MRI. Gallbladder has hyperechoic foci in the neck suspicious for 2 small stones. No wall thic kening or surrounding fluid. IMPRESSION: 1. Gallstones without secondary ultrasound evidence for acute cholecystitis. 2. Heterogeneous hyperechoic appearance of liver consistent with diffuse fatty infiltration and/or un derlying hepatocellular disease. No biliary dilatation noted.
[2021-05-29 12:07] LABS: Magnesium 1.6 mg/dL (1.6-2.3)
[2021-05-29 16:29] LABS: Hepatitis A Antibody IgM Nonreactive (Nonreactive); Hepatitis B Core IgM Nonreactive (Nonreactive); Hepatitis B Surface Antigen Nonreactive (Nonreactive); Hepatitis C IgG Antibody Nonreactive (Nonreactive)
--- NOTE | 2021-05-29 19:08 | P.CNNES ---
History of Present Illness Consult date: 05/29/21 Requesting physician: Johnny Ballesteros Reason for Consult: Dysarthria, TIA History of Present Illness: Patient is a 65-year-old female came to the hospital early this morning, at 12:15 AM for evaluation of an episode of confusion. Patient states that yesterday she went out with her sister and cousin in their spousal is to dinner. She was fine there. When she got home at 11:15 PM, she was getting ready to go to bed. She was doing her routines. At around 11:30 p.m. she came to the bed and was standing and looked very confused. Patient then does not remember anything and the next thing she remembers is being in the ER and the doctor asking her to squeeze her hands while being examined. Apparently patient was t old that her saw her standing, with a confused look. She then started talking, did not know what he was talking about. She asked same questions 20 times over and over. She could not remember the name of the president, or where she went earlier for the dinner and with whom she went. She apparently got dressed and her brought her to the hospital and she does not remember any of that. There was some concern about slurred speech but no other focal symptoms whatsoever. She denied any headache, problem with the vision. Vital signs on arrival blood pressure 176/102, pulse rate 108, temperature 97.4. Blood test shows normal CBC, PT/PTT, normal basic metabolic panel. Hepatic panel with AST 39, ALT 43. Troponin is negative. Patient's last hemoglobin A1c 6.8 on 05/23/2021. Patient's hepatic panel was cholesterol 180, LDL 90, HDL 45 and triglycerides 223 on 05/23/2021. CT head showed negative unenhanced scan. CTA of head and neck are reported as "negative". EKG shows sinus rhythm. Inferior myocardial infarction. Probably old. Abdominal ultrasound showed gallstones without secondary ultrasound evidence for acute cholecystitis. Heterogenous hypoechoic appearance of liver consistent with diffuse fatty infiltration and/or underlying hepatocellular disease. Patient's NIH stroke scale was 1. Patient was not a candidate for TPA. At present, her NIH stroke scale is 0. On review of records, it appears patient had to present with TIA on 12/15/2017 with a transient episode of confusion. Patient was seen by Dr. Plunkett. Patient was already on aspirin at that time and was switched to aspirin 81 mg and Plavix 75 mg daily. Patient at present takes amlodipine, Effexor, Lipitor 40 mg, metoprolol, vitamin D, Plavix 75 mg, aspirin 81 mg, Co Q-10. Multivitamins. Review of Systems All 14 points obtrusively wouldn't completely unremarkable at this time. No headache, no visual problem. No dysphagia Past Medical History Past Medical History: CVA/TIA, Hyperlipidemia, Hypertension, Sleep Apnea/CPAP/BIPAP Additional Past Medical History / Comment(s): TIA Nov 2017, VERTIGO , USES C- PAP, RUPTURED DISC., DERMATITIS ON CHIN, MITRAL VALVE PROLAPSE. History of Any Multi-Drug Resistant Organisms: None Reported Past Surgical History: Breast Surgery, Hysterectomy, Orthopedic Surgery Additional Past Surgical History / Comment(s): left knee, breast bx Past Anesthesia/Blood Transfusion Reactions: No Reported Reaction, Motion Sickness Past Psychological History: Anxiety, Depression Smoking Status: Never smoker Past Alcohol Use History: Occasional Past Drug Use History: None Reported - Past Family History Mother Family Medical History: Cancer, Diabetes Mellitus, Deep Vein Thrombosis (DVT), Thyroid Disorder Additional Family Medical History / Comment(s): THYROID CANCER Father Family Medical History: Coronary Artery Disease (CAD) Sister(s) Family Medical History: Cancer Additional Family Medical History / Comment(s): CERVICAL CANCER Medications and Allergies Home Medications Medication Instructions Recorded Confirmed Type Atorvastatin [Lipitor] 40 mg PO HS 12/15/15 05/29/21 History Venlafaxine HCl [Effexor XR] 150 mg PO BID 12/15/15 05/29/21 History amLODIPine [Norvasc] 5 mg PO HS 12/15/15 05/29/21 History Metoprolol Succinate [Toprol Xl] 100 mg PO HS 12/14/17 05/29/21 History Clopidogrel [Plavix] 75 mg PO HS 05/08/19 05/29/21 History Aspirin [Adult Low Dose Aspirin EC] 81 mg PO HS 05/28/19 05/29/21 History L.acidoph,Paracasei, B.lactis 1 cap PO DAILY 07/07/19 05/29/21 History [Probiotic] Multivit-Min/Iron/Folic/Lutein 1 tab PO DAILY 07/07/19 05/29/21 History [Centrum Silver Women Tablet] Faison-3 Fatty Acids/Fish Oil [Fish 1 cap PO DAILY 07/07/19 05/29/21 History Oil 1,000 mg Softgel] Ubidecarenone [Co Q-10] 200 mg PO DAILY 07/07/19 05/29/21 History Cholecalciferol [Vitamin D3 (25 50 mcg PO DAILY 05/29/21 05/29/21 History Mcg = 1000 Iu)] Losartan Potassium 100 mg PO DAILY 05/29/21 05/29/21 History Meclizine HCl 25 mg PO TID PRN 05/29/21 05/29/21 History hydroCHLOROthiazide [Hydrodiuril] 25 mg PO DAILY 05/29/21 05/29/21 History Allergies Allergy/AdvReac Type Severity Reaction Status Date / Time cephalexin [From Keflex] Allergy Rash/Hives Verified 05/29/21 12:21 Physical Examination - Vital Signs Vital Signs: Vital Signs Temp Pulse Pulse Resp BP BP Pulse Ox 05/29/21 08:00 78 17 05/29/21 07:50 98.1 F 78 17 130/76 97 05/29/21 06:35 97.6 F 85 16 147/83 98 05/29/21 06:15 67 18 109/77 98 05/29/21 05:15 98.7 F 84 18 125/72 98 05/29/21 04:00 80 18 128/77 98 05/29/21 01:15 87 18 131/85 98 05/29/21 01:00 88 18 137/82 98 05/29/21 00:45 92 18 143/90 98 05/29/21 00:17 97.4 F L 108 H 16 176/102 98 Intake and Output 05/28/21 05/29/21 05/29/21 22:59 06:59 14:59 Output Total 1 Balance -1 Output: Urine 1 Other: Voiding Method Toilet Weight 82 kg Patient is a late middle aged female, very pleasant, in no acute distress. Patient is alert awake oriented to time place and person. Speech and language functions are normal. Attention, concentration and fund of knowledge is adequate. On cranial examination, pupils are equal, round and reacting to light, visual cline are full on confrontation, extraocular muscles are intact with no nystagmus. Face is symmetric, tongue protrudes to the midline. Palatal elevation and sensation normal, hearing and shoulder shrug normal, facial sen sation normal. Shoulder shrug normal. On muscle strength testing, there is no pronator drift and the strength is normal in arms and legs distally and proximally. Deep tendon reflexes are symmetric 1+ to 2 and plantars downgoing bilaterally. Sensory to touch is equal with no neglect. Cerebellar function showed no ataxia for [id number] testing. No dysdiadochokinesia. Tone and bulk of muscles normal. Gait normal. On general examination, there is no carotid bruit or murmur, S1-S2 audible. Abdomen is soft nontender. Abdomen soft nontender, bowel sounds present. Chest is clear. Peripheral pulses are present. No edema. Results - Laboratory Findings CBC and BMP: 05/29/21 00:30 05/29/21 00:30 Abnormal Lab Findings: Abnormal Labs 05/29/21 05/29/21 00:30 00:30 Glucose 137 H POC Glucose (mg/dL) 143 H AST 39 H ALT 43 H Alkaline Phosphatase 144 H Assessment and Plan Assessment: * Probable transient global amnesia. Patient also has ?possible slight slurred speech, therefore TIA also in the differential. * History of similar TIA with confusional episode in 2018. * Hypertension * Hyperlipidemia * Borderline abnormal hepatic enzymes. Plan: * MRI brain evaluate for an acute stroke * 2-D echo rule out embolic source * Check EEG to rule out any epileptiform activity. * CTA of head and neck reported no stenosis. * Fasting lipid panel, hemoglobin A1c * Vitamin B12 1758, normal TSH 1.85. * Continue dual antiplatelet for now. Further management depends about above test results. * Dr. Neo Petit will resume neurology service in the morning. Thank you for the consult.
[2021-05-29] MEDS: VENLAFAXINE HCL ER 150 MG CAP PO SCH (20:39)
[2021-05-29] MEDS ORDERED: CLOPIDOGREL 75 MG TAB PO SCH (21:00)
[2021-05-29] MEDS ORDERED: ATORVASTATIN 40 MG TAB PO SCH (21:00)
[2021-05-29] MEDS ORDERED: ASPIRIN 81 MG PO SCH (21:00)
[2021-05-29] MEDS ORDERED: METOPROLOL SUCCINATE (ER) 100 MG TAB.ER.24H PO SCH (21:00)
[2021-05-30] MEDS: SODIUM CHLORIDE 0.9% 1,000 ML IV SCH ×2 (08:38→08:53)
[2021-05-30] MEDS: VENLAFAXINE HCL ER 150 MG CAP PO SCH (08:52)
[2021-05-30] MEDS: HEPARIN SODIUM,PORCINE/PF 5,000 UNIT/0.5 ML SYRINGE SQ SCH ×2 (08:52→16:18)
[2021-05-30] MEDS: FAMOTIDINE 20 MG TAB PO SCH (08:53)
[2021-05-30] MEDS: DOCUSATE 100 MG CAP PO SCH ×2 (08:53→16:16)
[2021-05-30] MEDS ORDERED: NON FORMULARY DRUG (Ubidecarenone [Co Q-10] 100 MG Capsule) PO SCH (09:00)
[2021-05-30] MEDS ORDERED: CHOLECALCIFEROL 25 MCG (1000 IU) TABLET PO SCH (09:00)
[2021-05-30] MEDS ORDERED: LACTOBACILLUS ACIDOPH & BULGAR 1 EACH PACKET PO SCH (09:00)
[2021-05-30] MEDS ORDERED: NON FORMULARY DRUG (Omega-3 Fatty Acids/Fish Oil [Fish Oil 1,000 Mg Softgel] 1 EACH Capsul PO SCH (09:00)
[2021-05-30] MEDS ORDERED: MULTIVITAMINS, THERA 1 EACH TAB PO SCH (09:00)
[2021-05-30 09:07] LABS: Basophils % (A) 0 %; Eosinophils # (A) 0.2 k/uL (0-0.7); Eosinophils % (A) 2 %; HCT 42.7 % (34.0-46.0); HGB 14.2 gm/dL (11.4-16.0); Lymphocytes % (A) 12 %; MCH 29.4 pg (25.0-35.0); MCHC 33.3 g/dL (31.0-37.0); MCV 88.4 fL (80.0-100.0); Mean Platelet Volume 8.1; Monocytes # (A) 0.3 k/uL (0-1.0); Monocytes % (A) 3 %; Neutrophils # (A) 6.9 k/uL (1.3-7.7); Neutrophils % (A) 81 %; Platelet Count 258 k/uL (150-450); RBC 4.83 m/uL (3.80-5.40); RDW 13.5 % (11.5-15.5); WBC 8.5 k/uL (3.8-10.6)
[2021-05-30 09:25] LABS: ALT 40 U/L (4-34); AST 36 U/L (14-36); African American GFR (CKD) >90 (>60 ml/min/1.73 sqM); Albumin 4.3 g/dL (3.5-5.0); Alkaline Phosphatase 115 U/L (38-126); Anion Gap 14 mmol/L; Blood Urea Nitrogen 12 mg/dL (7-17); Calcium 9.1 mg/dL (8.4-10.2); Carbon Dioxide 23 mmol/L (22-30); Chloride 105 mmol/L (98-107); Glucose 205 mg/dL (74-99); Magnesium 1.6 mg/dL (1.6-2.3); Non-African American GFR(CKD) 82 (>60 ml/min/1.73 sqM); Potassium 3.8 mmol/L (3.5-5.1); Sodium 142 mmol/L (137-145); Total Bilirubin 0.7 mg/dL (0.2-1.3); Total Protein 7.1 g/dL (6.3-8.2)
--- NOTE | 2021-05-30 10:40 | ECHOF ---
Referral Reason:tia MEASUREMENTS -------- HEIGHT: 160.0 cm WEIGHT: 81.6 kg BP: 119/72 RVIDd: 3.0 cm (< 3.3) IVSd: 0.9 cm (0.6 - 1.1) LVIDd: 4.4 cm (3.9 - 5.3) LVPWd: 1.0 cm (0.6 - 1.1) IVSs: 1.7 cm LVIDs: 2.9 cm LVPWs: 1.8 cm LA Diam: 3.3 cm (2.7 - 3.8) LAESV Index (A-L): 17.21 ml/m Ao Diam: 3.4 cm (2.0 - 3.7) AV Cusp: 1.9 cm (1.5 - 2.6) MV EXCURSION: 12.148 mm (> 18.000) MV EF SLOPE: 35 mm/s (70 - 150) EPSS: 0.8 cm MV E Cameron: 0.67 m/s MV DecT: 335 ms MV A Cameron: 0.93 m/s MV E/A Ratio: 0.72 RAP: 5.00 mmHg RVSP: 22.46 mmHg FINDINGS -------- Sinus rhythm. This was a technically good study. The left ventricular size is normal. Left ventricular wall thickness is normal. Overall left vent ricular systolic function is normal with, an EF between 60 - 65 %. The right ventricle is normal in size. Normal LA size by volume 22+/-6 ml/m2. The right atrium is normal in size. Interatrial and interventricular septum intact. The aortic valve is trileaflet, and appears structurally normal. No aortic stenosis or regurgitation. The mitral valve is normal. Mild tricuspid regurgitation present. Right ventricular systolic pressure is normal at < 35 mmHg. The pulmonic valve was not well visualized. The aortic root size is normal. Normal inferior vena cava with normal inspiratory collapse consistent with estimated right atrial pre ssure of 5 mmHg. There is no pericardial effusion. CONCLUSIONS -------- 1. The left ventricular size is normal. 2. Left ventricular wall thickness is normal. 3. Overall left ventricular systolic function is normal with, an EF between 60 - 65 %. 4. Mild tricuspid regurgitation present. 5. There is no pericardial effusion. TRAUMA PROGRAM MANAGER: Yuko Gandhi RDCS
--- NOTE | 2021-05-30 10:48 | MR ---
EXAMINATION TYPE: MR brain wo/w con DATE OF EXAM: 05/30/2021 10:43 AM COMPARISON: NONE HISTORY: Slurred speech CONTRAST: Patient received 8 mL intravenous Gadavist gadolinium contrast. Multiplanar and multispin-echo imaging of the brain was performed . Pre and post contrast enhanced i mages are obtained. The ventricles, basal cisterns and sulci overlying the cerebral convexities are mildly enlarged. There is evidence of mild periventricular white matter ischemic demyelination. Remote deep white matter insults are also noted. No acute edema is seen on diffusion weighted imaging. There is no evidence for midline shift or mass effect. Acute intracranial hemorrhage or extra-axial collection is not evident. No enhancing lesions are seen. The paranasal sinuses and mastoid air cells are well-aerated. IMPRESSION: Age-related atrophic and chronic small vessel ischemic change. No acute intracranial process at this time. No enhancing lesions are seen.
--- NOTE | 2021-05-30 11:59 | P.CRDCN ---
History of Present Illness History of present illness: HISTORY OF PRESENTING ILLNESS This is a pleasant 64-year-old female past medical history significant for TIA in 2018, hypertension, hyperlipidemia and anxiety, pre-diabetes. She does not follow with a chicken raiser. We have been asked to see in consultation for reccurent TIA rule out atrial fibrillation. Patient presented to the emergency department on 05/29/2021 with episode of confusion and slurred speech. She does not recall the incident, but was witnessed by her . Patient was a pparently in the house getting ready to go to bed when her noticed that she was standing in place staring off, and appeared confused. He then asked her a few questions to which she was unable to answer appropriately and he noticed that her speech was slurred. The patient reports that it took roughly 2 hours for her symptoms gradually dissipate, and then she reported feeling back to her baseline. She is alert and oriented x 3. Denies any pain, lightheadedness, dizziness, palpitations, syncope or near syncope or shortness of breath. She denies any history of CAD, PA, Stroke, diabetes. She states she occasionally does get palpitations but this is when she is anxious. She does currently smoke e-cigarettes socially about 1/week. Family history includes father with CAD s/p 2 CABG, first in his 40s. DIAGNOSTICS EKG reveals sinus rhythm, heart rate 92, nonspecific ST and T wave abnor malities, no acute ischemia noted. Telemetry tracings indicate sinus mechanism heart rate 80s-90 Ultrasound revealed gallstones CTA was negative Brain CT with no acute intracranial process Most recent echocardiogram 2018 revealed an EF of 6065 percent Chest xray no acute cardiopulmonary process Laboratory reviewed, CBC unremarkable, sodium 140, potassium 3.8, BUN 16, serum 0.7, troponin negative 3, AST 39, ALT 43, alkaline phosphatase 144, hemoglobin A1c 6.7, TSH within normal limits Current home cardiac medications include hydrochlorothiazide 20 mg daily, amlodipine 5 mg nightly, metoprolol succinate 100 mg nightly, losartan 100 daily, Plavix 75mg daily, atorvastatin 40 mg nightly, aspirin 81 mg daily MRI of the brain revealed no acute intracranial process. REVIEW OF SYSTEMS At the time of my exam: CONSTITUTIONAL: Denies fever or chills. CARDIOVASCULAR: Denies chest pain, shortness of breath, orthopnea, PND or palpitations. RESPIRATORY: Denies cough. GASTROINTESTINAL: Denies abdominal pain, diarrhea, constipation, nausea or vomiting. MUSCULOSKELETAL: Denies myalgias. NEUROLOGIC: Denies numbness, tingling, headacbe or weakness. ENDOCRINE: Denies fatigue, weight change, polydipsia or polyurina. GENITOURINARY: Denies burning, hematuria or urgency with micturation. HEMATOLOGIC: Denies history of anemia or bleeding. PHYSICAL EXAMINATION Blood pressure 130/78, heart rate 74, afebrile, saturations 97% on room air CONSTITUTIONAL: No apparent distress. HEENT: Head is normocephalic. Pupils are equal, round. Sclerae anicteric. Mucous membranes of the mouth are moist. No JVD. No carotid bruit. CHEST EXAMINATION: Lungs are clear to auscultation. No chest wall tenderness is noted on palpation or with deep breathing. HEART EXAMINATION: Regular rate and rhythm. S1, S2 heard. No murmurs, gallops or rub. ABDOMEN: Soft, nontender. Positive bowel sounds. EXTREMITIES: 2+ peripheral pulses, no lower extremity edema and no calf tenderness. NEUROLOGIC EXAMINATION: Patient is awake, alert and oriented x3. ASSESSMENT Episode of confusion and slurred speech TIA in 2018 Hypertension Hyperlipidemia History of anxiety Type 2 diabetes PLAN Echocardiogram revealed EF of 6065%, mild tricuspid regurgitation. Continue home cardiac medications. Continue telemetry while inpatient 30 day event monitor ordered. From a cardiology perspective, patient is stable for discharge pending neurology workup Follow up with Dr. Zheng outpatient Nurse practitioner note has been reviewed by physician. Signing provider agrees with the documented findings, assessment, and plan of care. Past Medical History Past Medical History: CVA/TIA, Hyperlipidemia, Hypertension, Sleep Apnea/CPAP/BIPAP Additional Past Medical History / Comment(s): TIA Nov 2017, VERTIGO , USES C- PAP, RUPTURED DISC., DERMATITIS ON CHIN, MITRAL VALVE PROLAPSE. History of Any Multi-Drug Resistant Organisms: None Reported Past Surgical History: Breast Surgery, Hysterectomy, Orthopedic Surgery Additional Past Surgical History / Comment(s): left knee, breast bx Past Anesthesia/Blood Transfusion Reactions: No Reported Reaction, Motion Sickness Past Psychological History: Anxiety, Depression Smoking Status: Never smoker Past Alcohol Use History: Occasional Past Drug Use History: None Reported - Past Family History Mother Family Medical History: Cancer, Diabetes Mellitus, Deep Vein Thrombosis (DVT), Thyroid Disorder Additional Family Medical History / Comment(s): THYROID CANCER Father Family Medical History: Coronary Artery Disease (CAD) Sister(s) Family Medical History: Cancer Additional Family Medical History / Comment(s): CERVICAL CANCER Medications and Allergies Home Medications Medication Instructions Recorded Confirmed Type Atorvastatin [Lipitor] 40 mg PO HS 12/15/15 05/29/21 History Venlafaxine HCl [Effexor XR] 150 mg PO BID 12/15/15 05/29/21 History amLODIPine [Norvasc] 5 mg PO HS 12/15/15 05/29/21 History Metoprolol Succinate [Toprol Xl] 100 mg PO HS 12/14/17 05/29/21 History Clopidogrel [Plavix] 75 mg PO HS 05/08/19 05/29/21 History Aspirin [Adult Low Dose Aspirin EC] 81 mg PO HS 05/28/19 05/29/21 History L.acidoph,Paracasei, B.lactis 1 cap PO DAILY 07/07/19 05/29/21 History [Probiotic] Multivit-Min/Iron/Folic/Lutein 1 tab PO DAILY 07/07/19 05/29/21 History [Centrum Silver Women Tablet] Spooner-3 Fatty Acids/Fish Oil [Fish 1 cap PO DAILY 07/07/19 05/29/21 History Oil 1,000 mg Softgel] Ubidecarenone [Co Q-10] 200 mg PO DAILY 07/07/19 05/29/21 History Cholecalciferol [Vitamin D3 (25 50 mcg PO DAILY 05/29/21 05/29/21 History Mcg = 1000 Iu)] Losartan Potassium 100 mg PO DAILY 05/29/21 05/29/21 History Meclizine HCl 25 mg PO TID PRN 05/29/21 05/29/21 History hydroCHLOROthiazide [Hydrodiuril] 25 mg PO DAILY 05/29/21 05/29/21 History Allergies Allergy/AdvReac Type Severity Reaction Status Date / Time cephalexin [From Keflex] Allergy Rash/Hives Verified 05/29/21 12:21 Physical Exam Vitals: Vital Signs Temp Pulse Resp BP Pulse Ox 05/30/21 04:00 98.4 F 84 16 119/72 97 05/30/21 00:00 83 16 124/83 94 L 05/29/21 20:00 98.4 F 88 16 138/86 95 04/10/22 16:00 98.8 F 88 17 132/87 96 05/29/21 15:20 97 05/29/21 14:00 85 17 05/29/21 11:47 98.4 F 85 17 114/69 96 05/29/21 08:00 78 17 05/29/21 07:50 98.1 F 78 17 130/76 97 Intake and Output 05/29/21 05/30/21 05/30/21 22:59 06:59 14:59 Other: Voiding Method Toilet Toilet # Voids 1 1 Results 05/30/21 08:17 05/30/21 08:17 Cardiac Enzymes 05/29/21 Range/Units 08:34 Troponin I <0.012 (0.000-0.034) ng/mL Current Medications Generic Name Dose Route Start Last Admin Trade Name Freq PRN Reason Stop Dose Admin Acetaminophen 650 mg 05/29/21 03:08 Acetaminophen Tab 325 Mg Tab PO Q6HR PRN Pain Aspirin 81 mg 05/29/21 21:00 05/29/21 20:39 Aspirin 81 Mg PO 81 mg HS DAMIAN Administration Atorvastatin Calcium 40 mg 05/29/21 21:00 05/29/21 20:39 Atorvastatin 40 Mg Tab PO 40 mg HS DAMIAN Administration Cholecalciferol 50 mcg 05/30/21 09:00 Cholecalciferol 25 Mcg (1000 Iu) Tablet PO QAM DAMIAN Clopidogrel Bisulfate 75 mg 05/29/21 21:00 05/29/21 20:39 Clopidogrel 75 Mg Tab PO 75 mg HS DAMIAN Administration Docusate Sodium 100 mg 05/29/21 08:00 05/29/21 20:42 Docusate 100 Mg Cap PO Not Given Q8HR DAMIAN Famotidine 20 mg 05/29/21 09:00 05/29/21 20:39 Famotidine 20 Mg Tab PO 20 mg BID DAMIAN Administration Heparin Sodium (Porcine) 5,000 unit 05/29/21 08:00 05/29/21 23:31 Heparin Sodium,Porcine/Pf 5,000 Unit/0.5 Ml Syringe SQ 5,000 unit Q8HR DAMIAN Administration Sodium Chloride 1,000 mls @ 100 mls/hr 05/29/21 03:15 05/29/21 20:40 Saline 0.9% IV 100 mls/hr .Q10H DAMIAN Administration Lactobacillus Acidoph/Bulgaricus 1 each 05/30/21 09:00 Lactobacillus Acidoph & Bulgar 1 Each Packet PO DAILY DAMIAN Metoprolol Succinate 100 mg 05/29/21 21:00 05/29/21 20:39 Metoprolol Succinate (Er) 100 Mg Tab.Er.24h PO 100 mg HS DAMIAN Administration Multivitamins 1 each 05/30/21 09:00 Multivitamins, Thera 1 Each Tab PO DAILY DAMIAN Venlafaxine HCl 150 mg 05/29/21 21:00 05/29/21 20:39 Venlafaxine Hcl Er 150 Mg Cap PO 150 mg BID DAMIAN Administration Intake and Output 05/29/21 05/30/21 05/30/21 22:59 06:59 14:59 Other: Voiding Method Toilet Toilet # Voids 1 1 05/29/21 00:30 05/29/21 00:30
[2021-05-30 12:10] VITALS: BP 146/89; PULSE 90; RESP 18; TEMP 97.7
[2021-05-30 14:54] LABS: Chol/HDL Ratio 4.14 Ratio; LDL Cholesterol,Calculated 85.8 mg/dL (0.0-131.0)
--- NOTE | 2021-05-30 15:19 | P.DS ---
Providers Date of admission: 05/29/21 03:08 Expected date of discharge: 05/30/21 Attending physician: Baljinder Baltazar MD Consults: 05/29/21 03:08 Consult Physician Routine Consulting Provider: Pa Morrison Consult Reason/Comments: Dysarthria, TIA Do you want consulting provider notified?: Yes 05/29/21 16:05 Consult Physician Routine Consulting Provider: Maximino Bach Consult Reason/Comments: Recurrent TIAs and history of tachyarrhythmia rule out A. fib Do you want consulting provider notified?: Yes Primary care physician: Eugenio Lyon MD Hospital Course: Discharge Diagnosis: TIA, continue dual antiplatelet therapy, atorvastatin, and fenofibrate. Follow heart healthy and carb consistent diet. Patient being discharged home on 30 day event monitor. Elevated LFTs, resolved. Right upper quadrant ultrasound completed negative for acute process. Hypomagnesemia, replaced Hypertension Hyperlipidemia Hypertriglyceridemia Anxiety Hospital Course: Patient is a very pleasant 65-year-old female with a past medical history of TIA, hypertension, hyperlipidemia, and anxiety. She presented to the emergency department on 05/29/21 with a chief complaint of memory loss and slurred speech. Patient reports that she went out to dinner with her and some friends and upon returning home she reports that she was sitting on the edge of the bed staring off into space and states that her asked her some questions and she appeared confused and it was reported that she had some slurred speech. The symptoms reportedly lasted approximately 2 hours prior to fully resolving. Patient underwent full evaluation the emergency department. CT brain negative for acute intercranial process. CTA head and neck negative for acute process. EKG showing normal sinus rhythm at 91 bpm with prominent Q waves in inferior leads 2, 3, and aVF. Patient was admitted under our services with consultation to neurology and cardiology. Troponins trended 3 all negative at less than 0.012. Lipid profile revealing elevated triglycerides of 246 and elevated LDL of 49.20. Hemoglobin A1c 6.7%. Echocardiogram showing a normal EF between 60 and 65% with mild tricuspid regurgitation. MRI revealing age-related atrophic and chronic small vessel ischemic changes and negative for acute intercranial process. EEG reported as normal negative for Epileptiform activity. Neurology clearing patient at this time recommending outpatient follow-up with neurologist and continue dual antiplatelet therapy. Cardiology recommending discharge home with 30 day event monitor. Patient is medically stable at this time as all symptoms have remained resolved throughout hospitalization. Event monitor to be placed and patient to be discharged home. Patient was started on fenofibrate for elevated triglyceride levels and educated about the importance of following a heart healthy and carb consistent diet secondary to elevated triglyceride levels and hemoglobin A1c of 6.7%. Patient will need follow-up with her PCP for continued long-term monitoring/management as well as outpatient follow-up with neurology and cardiology as discussed. Patient seen and examined at bedside. Vital signs reviewed and stable. General: Nontoxic, no distress and appears stated age. Derm: Skin warm and dry, normal coloration for ethnicity. Head: Atraumatic, normocephalic and symmetric. Eyes: EOMs intact, no lid lag, and anicteric sclera Mouth: no lip lesions, mucus membranes moist Cardiovascular: regular rate and rhythm with normal S1S2, no murmur, positive posterior tibial pulses bilaterally, and cap refill < 2 seconds. Lungs: Respirations even, regular, and unlabored on room air. Lungs CTA sarah aterally, no rhonchi, no rales, no wheezing, and no accessory muscle usage. Abdominal: soft, nontender to palpation, no guarding, no appreciable organomegaly Ext: ROM intact. No gross muscle atrophy, no edema, no contractures Neuro: Speech clear, face symmetrical and CN II-XII grossly intact with no noted focal neuro deficits Psych: Alert and oriented to person, place, time, and situation. Appropriate and pleasant affect. A total of 39 minutes of time were spent preparing this complex discharge summary. Patient Condition at Discharge: Stable Plan - Discharge Summary Discharge Rx Participant: Yes New Discharge Prescriptions: New Fenofibrate 120 mg PO DAILY 30 Days #30 tablet Continue amLODIPine [Norvasc] 5 mg PO HS Venlafaxine HCl [Effexor XR] 150 mg PO BID Atorvastatin [Lipitor] 40 mg PO HS Metoprolol Succinate [Toprol Xl] 100 mg PO HS Clopidogrel [Plavix] 75 mg PO HS Aspirin [Adult Low Dose Aspirin EC] 81 mg PO HS Ubidecarenone [Co Q-10] 200 mg PO DAILY [place]-3 Fatty Acids/Fish Oil [Fish Oil 1,000 mg Softgel] 1 cap PO DAILY Multivit-Min/Iron/Folic/Lutein [Centrum Silver Women Tablet] 1 tab PO DAILY L.acidoph,Paracasei, B.lactis [Probiotic] 1 cap PO DAILY Cholecalciferol [Vitamin D3 (25 Mcg = 1000 Iu)] 50 mcg PO DAILY hydroCHLOROthiazide [Hydrodiuril] 25 mg PO DAILY Meclizine HCl 25 mg PO TID PRN PRN Reason: Vertigo Losartan Potassium 100 mg PO DAILY Discharge Medication List Atorvastatin [Lipitor] 40 mg PO HS 12/15/15 [History] Venlafaxine HCl [Effexor XR] 150 mg PO BID 12/15/15 [History] amLODIPine [Norvasc] 5 mg PO HS 12/15/15 [History] Metoprolol Succinate [Toprol Xl] 100 mg PO HS 12/14/17 [History] Clopidogrel [Plavix] 75 mg PO HS 05/08/19 [History] Aspirin [Adult Low Dose Aspirin EC] 81 mg PO HS 05/28/19 [History] L.acidoph,Paracasei, B.lactis [Probiotic] 1 cap PO DAILY 07/07/19 [History] Multivit-Min/Iron/Folic/Lutein [Centrum Silver Women Tablet] 1 tab PO DAILY 07/07/19 [History] [place]-3 Fatty Acids/Fish Oil [Fish Oil 1,000 mg Softgel] 1 cap PO DAILY 07/07/19 [History] Ubidecarenone [Co Q-10] 200 mg PO DAILY 07/07/19 [History] Cholecalciferol [Vitamin D3 (25 Mcg = 1000 Iu)] 50 mcg PO DAILY 05/29/21 [History] Losartan Potassium 100 mg PO DAILY 05/29/21 [History] Meclizine HCl 25 mg PO TID PRN 05/29/21 [History] hydroCHLOROthiazide [Hydrodiuril] 25 mg PO DAILY 05/29/21 [History] Fenofibrate 120 mg PO DAILY 30 Days #30 tablet 05/30/21 [Rx] Follow up Appointment(s)/Referral(s): Edith Zheng MD [STAFF PHYSICIAN] - 4 Weeks Raven Espinal MD [REFERRING] - 1 Week Eugenio Lyon MD [Primary Care Provider] - 1 Week Activity/Diet/Wound Care/Special Instructions: Activity: As tolerated. Take breaks as needed. Diet: Heart healthy and carb consistent diet. Avoid salts, or foods with hidden salts such as canned or boxed foods and frozen dinners. Extra salt makes your heart work harder and traps the fluid in your body for longer. Special Instructions: Take all of your medications as directed and remember to keep all of your doctor's appointments and follow-up as needed. You are being discharged home on a 30 day event monitor, it is important to follow up with cardiology and neurology as directed. Your lipid profile revealed elevation in your triglycerides as well as her LDL levels. In addition to your daily atorvastatin you have been started on fenofibrate to assist in lowering your triglyceride levels, in addition to this it is strongly encourage that you follow a heart healthy and carb consistent diet. Hemoglobin A1c is 6.7%, this places you at risk for developing diabetes. Goal is to maintain a hemoglobin A1c of less than 6%. It is highly recommended that you follow a heart healthy and carb consistent diet to prevent further worsening of your cholesterol panel and hemoglobin A1c. You will need to follow up with your PCP in 3 months to have both of these levels reevaluated based on your dietary and lifestyle changes. Thank you for allowing us to participate in your care, it was truly a pleasure having you for our patient!!! Hoping you enjoy every moment of becoming a grandmother! Wishing you all the blessings in the world!! Discharge Disposition: HOME SELF-CARE
--- NOTE | 2021-05-30 15:21 | EEG ---
ELECTROENCEPHALOGRAM REPORT DATE OF SERVICE: 05/30/2021. CLINICAL HISTORY: This is a 65-year-old woman who presented to the emergency department because of an episode of transient global amnesia. The video EEG is obtained to evaluate for seizure epileptiform activity. RELEVANT MEDICATION: The patient is not on any antiepileptic drugs. EEG TYPE: A routine 21-channel EEG is performed with video using the 10/20 electrode system. DESCRIPTION: Wakefulness is obtained. During the awake state the posterior-dominant rhythm consists of low to moderate voltage of 8 to 9 hertz activity that is well modulated and well sustained. There is no physiological stage II sleep architecture. There is no focal slowing. Interictal and ictal is none. ACTIVATION PROCEDURE: Photic stimulation evoked a posterior driving response at multiple low flash frequencies. There is no abnormality during the photic stimulation. Hyperventilation is not performed. CLINICAL INTERPRETATION: This is a normal routine EEG. There is no focal slowing, epileptiform discharge or seizure on the EEG. Clinical correlation is recommended. MISHA / DAVIDN: [id number] / EMILY
[2021-05-30] MEDS ORDERED: MAGNESIUM OXIDE 400 MG TAB PO STA (15:42)
[2021-05-31] MEDS ORDERED: metFORMIN 500 MG TAB PO SCH (07:30)
== END 2021-05-30 16:41 | disposition home or self-care (01) ==
LOC: EC 00:15 → 3SCARD 03:08
PROVIDERS: ADMIT Internal Medicine; ATTEND Internal Medicine
DX: G45.9 Transient cerebral ischemic attack, unspecified (principal); I10 Essential (primary) hypertension; E78.5 Hyperlipidemia, unspecified; E78.1 Pure hyperglyceridemia; G47.30 Sleep apnea, unspecified; L30.9 Dermatitis, unspecified; E83.42 Hypomagnesemia; R73.03 Prediabetes; K80.20 Calculus of gallbladder without cholecystitis without obstruction; I07.1 Rheumatic tricuspid insufficiency; R79.89 Other specified abnormal findings of blood chemistry; R00.0 Tachycardia, unspecified; R47.1 Dysarthria and anarthria; R41.3 Other amnesia; R42 Dizziness and giddiness; F32.A Depression, unspecified; F41.9 Anxiety disorder, unspecified; Z79.82 Long term (current) use of aspirin; Z79.02 Long term (current) use of antithrombotics/antiplatelets; Z79.899 Other long term (current) drug therapy; Z88.1 Allergy status to other antibiotic agents; Z90.710 Acquired absence of both cervix and uterus; Z86.73 Personal history of transient ischemic attack (TIA), and cerebral infarction without residual deficits; Z98.890 Other specified postprocedural states; Z83.3 Family history of diabetes mellitus; Z80.8 Family history of malignant neoplasm of other organs or systems; Z82.49 Family history of ischemic heart disease and other diseases of the circulatory system; Z80.49 Family history of malignant neoplasm of other genital organs; Z83.49 Family history of other endocrine, nutritional and metabolic diseases
CPT/HCPCS: 96361 ×2; 96372 ×2; 96360; 99285; 36415; 95816; 93005; 93306; 93270; 97161; 97165; 92523; 80061; 80053 ×2; 80074; 84443; 82607; 83735 ×2; 84484; 85025 ×2; 85610; 85730; 83036; 71045; 76705; 70496; 70450; 70498; 70553; G0378 ×2; Q9967; J1644 ×2; A9585

== ENCOUNTER → 2021-06-30 | Outpatient (CLI) | payer BC ==
--- NOTE | 2021-06-30 22:01 | BD ---
EXAMINATION TYPE: Axial Bone Density DATE OF EXAM: 06/30/2021 COMPARISON: NONE CLINICAL HISTORY: 65 years year old Female. ICD-10 CODE: Z78.0 POST MENOPAUSAL Height: 62 IN Weight: 174 LBS FRAX RISK QUESTIONS: History of Fracture in Adulthood: LT HAND AGE 44; RT FOOT AGE 44, LT FOOT AGE 46 Secondary Osteoporosis: Current Tobacco Use: YES RISK FACTORS HISTORY OF: Active: YES Postmenopausal woman: TOTAL HYST AGE 50 If Premenopausal, do you have irregular periods: Frequent falls: FALLS DUE TO IMBALANCE MEDICATIONS: Additional Medications: CALCIUM, VIT D,HIGH BLOOD PRESSURE MEDS, CHOLESTEROL MEDS, COQ10, FISH OIL, V IT B12, MULTI VIT, EXAM MEASUREMENTS: Bone mineral densitometry was performed using the [employer]. Bone mineral density as measured about the Lumbar spine is: ----- L1-L4(G/cm2): 1.180 T Score Values are as follows: ----- L1: -0.3 ----- L2: -0.4 ----- L3: -0.1 ----- L4: 0.5 ----- L1-L4: 0.0 Bone mineral density BASELINE Bone mineral density about the R hip (g/cm2): 0.904 Bone mineral density about the L hip (g/cm2): 0.827 T Score values are as follows: -----R Neck: -1.0 -----L Neck: -1.5 -----R Total: -0.3 -----L Total: -0.3 Bone mineral density BASELINE FRAX%s: The graph provided illustrates a 14.2 chance for a major osteoporotic fx and a 2.4 chance for the hips probability for fx in 10 years time. IMPRESSION: Osteopenia (T Score between -2.5 and -1). There is slightly increased risk of fracture and the patient may be considered for treatment. Re-Screen 2-5 years. NOTE: T-SCORE=SD OF THE YOUNG ADULT MEAN.
--- NOTE | 2021-07-01 12:29 | MM ---
Reason for exam: screening (asymptomatic). Last mammogram was performed 1 year and 6 months ago. History: Patient is postmenopausal and has history of high-risk lesion on a previous biopsy at age 63. High risk MG pre op needle loc RT of the right breast, July 08, 2019. Benign US biopsy breast VAD RT of the right breast, June 04, 2019. Benign excisional biopsy of the right breast, 1992. Took hormonal contraceptives for 8 years. Physical Findings: A clinical breast exam by your physician is recommended on an annual basis and results should be correlated with mammographic findings. MG 3D Screening Mammo W/Cad Bilateral CC and MLO view(s) were taken. Prior study comparison: January 12, 2020, right breast MG 3d diag mammo w/cad RT. May 08, 2019, right breast MG 3d work up w/cad RT. The breast tissue is heterogeneously dense. This may lower the sensitivity of mammography. Surgical clips right breast. No significant changes when compared with prior studies. ASSESSMENT: Benign, BI-RAD 2 RECOMMENDATION: Routine screening mammogram of both breasts in 1 year.
== END | disposition home or self-care (01) ==
LOC: RADMAMWWP 16:00
PROVIDERS: ATTEND Internal Medicine
DX: Z12.31 Encounter for screening mammogram for malignant neoplasm of breast (principal); M85.89 Other specified disorders of bone density and structure, multiple sites; Z78.0 Asymptomatic menopausal state
CPT/HCPCS: 77063; 77067; 77080

== ENCOUNTER → 2022-03-20 | Outpatient (CLI) | payer BC ==
--- NOTE | 2022-03-21 07:28 | MR ---
EXAMINATION TYPE: MR ankle LT wo con DATE OF EXAM: 03/20/2022 COMPARISON: None. HISTORY: Left ankle pain, swelling, and limited movement due to object hitting ankle Standard multiplanar, multisequence MRI departmental protocol Multiplanar, multisequence images of the left ankle were acquired without contrast. FINDINGS: Distal Achilles tendon intact. Visualized plantar fascia appears within normal limits. Norm al sinus tarsi fat is seen. Small posterior tibiotalar joint effusion is present. Hindfoot articulati ons are maintained. Ankle mortise symmetry is preserved. There is narrowing with subchondral cystic change at base of third metatarsal as it articulates with the lateral cuneiform. Some narrowing with less prominent subchondral cystic change at base of fourth metatarsal articulating with cuboid bone. Moderate dorsal aspect spurring midfoot level is seen. The anterior tibiofibular and anterior talofibular ligaments are intact. Medial deltoid ligament is i ntact. Mild to moderate diffuse subcutaneous edema medially is seen. Peroneal tendons are intact. There is increased signal and thickening of the posterior tibial tendon with surrounding edema at the level of the medial malleolus and adjacent to the talus. Prominent flui d surrounds the FHL posterior to the talus. Anterior extensor tendons are intact. IMPRESSION: 1. There is tearing and tenosynovitis of the posterior tibial tendon. 2. Moderate midfoot arthropathy as detailed above. 3. FHL tenosynovitis.
== END | disposition home or self-care (01) ==
LOC: RADMRIMAIN 10:23
PROVIDERS: ATTEND Podiatrist Foot & Ankle Surgery
DX: M66.872 Spontaneous rupture of other tendons, left ankle and foot (principal); S93.422A Sprain of deltoid ligament of left ankle, initial encounter; M65.872 Other synovitis and tenosynovitis, left ankle and foot

== ENCOUNTER → 2022-07-03 | Outpatient (CLI) | payer MEDICARE ==
[2022-07-04 02:45] LABS: ALT 39 U/L (8-44); AST 29 U/L (13-35); Albumin 4.6 g/dL (3.8-4.9); Albumin/Globulin Ratio 2.12 (1.60-3.17); Alkaline Phosphatase 122 U/L (41-126); BUN/Creat Ratio 16.15 Ratio (12.00-20.00); Blood Urea Nitrogen 11.5 mg/dL (9.0-27.0); Calcium 9.5 mg/dL (8.7-10.3); Carbon Dioxide 25.5 mmol/L (20.0-27.5); Chloride 105 mmol/L (96-109); Chol/HDL Ratio 4.14 Ratio; Globulin 2.2 g/dL (1.6-3.3); Glucose 104 mg/dL (70-110); LDL Cholesterol,Calculated 100.6 mg/dL (0.0-131.0); Non-African American GFR(CKD) 89.7 (60.0-200.0); Potassium 3.8 mmol/L (3.5-5.5); Sodium 143 mmol/L (135-145); Total Protein 6.7 g/dL (6.2-8.2)
[2022-07-04 02:46] LABS: Basophils # (A) 0.05 X 10*3/uL (0.00-0.10); Basophils % (A) 0.9 %; Eosinophils # (A) 0.16 X 10*3/uL (0.04-0.35); Eosinophils % (A) 2.8 %; HCT 41.9 % (37.2-46.3); HGB 13.4 g/dL (12.0-15.0); Immature Grans, Automated 0.3 %; Lymphocytes # (A) 1.34 X 10*3/uL (0.90-5.00); Lymphocytes % (A) 23.2 %; MCH 28.4 pg (27.0-32.0); MCV 88.8 fL (80.0-97.0); Mean Platelet Volume 11.4 fL (9.5-12.2); Monocytes # (A) 0.34 X 10*3/uL (0.20-1.00); Monocytes % (A) 5.9 %; NRBC Per 100 WBC 0 /100 WBCS (0.0-0.0); Neutrophils # (A) 3.86 X 10*3/uL (1.80-7.70); Neutrophils % (A) 66.9 %; Platelet Count 245 X 10*3/uL (140-440); RBC 4.72 X 10*6/uL (4.10-5.20); RDW 13.1 % (11.5-14.5); WBC 5.77 X 10*3/uL (4.50-10.00)
--- NOTE | 2022-07-04 19:30 | MM ---
Reason for Exam: Screening (asymptomatic). Last screening mammogram was performed 12 month(s) ago. Patient History: Menarche at age 15. First Full-Term at age 32. Late child-bearing (after 32). Left ovary removed at age 52. Right ovary removed at age 52. Hysterectomy at age 52. Postmenopausal. Patient used Hormonal Contraceptives for 8 years. 1992, Benign Excisional Biopsy on the right side. 07/08/2019, High risk Core Biopsy on the right side. 06/04/2019, Benign Core Biopsy on the right side. Risk Values: Winter 5 year model risk: 3.3%. NCI Lifetime model risk: 13.0%. Prior Study Comparison: 05/08/2019 Right Diagnostic Mammogram, [facility]. 01/12/2020 Right Diagnostic Mammogram, [facility]. 06/30/2021 Bilateral Screening Mammogram, [facility]. Tissue Density: There are scattered fibroglandular densities. Findings: Analyzed By CAD. Postexcisional changes anterior right breast. Chronic nodularity anterior lower quadrant right breast. No skin thickening change from prior exams. There is no suspicious group of microcalcifications or new suspicious mass in either breast. Overall Assessment: Benign, BI-RAD 2 Management: Screening Mammogram of both breasts in 1 year. See note regarding patient's increased Winter score below. Patient should continue monthly self-breast exams. A clinical breast exam by your physician is recommended on an annual basis. This exam should not preclude additional follow-up of suspicious palpable abnormalities. Note on Winter scores and lifetime risk: 1. A Winter score greater than 3% is considered moderate risk. If this is the case, consider specialist referral to assess eligibility for a risk reducing agent. 2. If overall lifetime risk for the development of breast cancer is 20% or higher, the patient may qualify for future screening with alternating mammogram and breast MRI. Electronically signed and approved by: Shamar Alford M.D. Radiologist
== END | disposition home or self-care (01) ==
LOC: RADMAMWWP 13:11
PROVIDERS: ATTEND Internal Medicine
DX: Z12.31 Encounter for screening mammogram for malignant neoplasm of breast (principal); E11.9 Type 2 diabetes mellitus without complications; Z78.0 Asymptomatic menopausal state
CPT/HCPCS: 77063; 77067; 80053; 80061; 82306; 83036; 84443; 85025; 86803

== ENCOUNTER → 2023-07-09 | Outpatient (CLI) | payer MEDICARE ==
--- NOTE | 2023-07-10 16:43 | BD ---
EXAMINATION TYPE: Axial Bone Density DATE OF EXAM: 07/09/2023 CLINICAL HISTORY: 67 years old Female. ICD-10 CODE: M85.80 OTH DISORDER OF BONE DENS Height: 62.5 Weight: 178 FRAX RISK QUESTIONS: Family History (Parent hip fracture): yes History of Fracture in Adulthood: yes Secondary Osteoporosis: no RISK FACTORS HISTORY OF: Surgery to Spine/Hip(right/left)/Wrist (right/left): no MEDICATIONS: Thyroid Medications: no Osteoporosis Medications: no EXAM MEASUREMENTS: Bone mineral densitometry was performed using the [employer] System. Bone mineral density as measured about the Lumbar spine is: ----- L1-L4(G/cm2): 1.150 T Score Values are as follows: ----- L1: -1.0 ----- L2: -0.6 ----- L3: -1.3 ----- L4: 1.2 ----- L1-L4: -0.3 Z Score Values are as follows: ----- L1: 0.0 ----- L2: 0.5 ----- L3: -0.2 ----- L4: 2.3 ----- L1-L4: 0.8 Bone mineral density has: Increased 7.3% since study of: 06/30/2021 Bone mineral density about the R hip (g/cm2): 0.938 Bone mineral density about the L hip (g/cm2): 0.964 T Score values are as follows: -----R Neck: -1.4 -----L Neck: -1.8 -----R Total: -0.5 -----L Total: -0.3 Z Score values are as follows: -----R Neck: -0.2 -----L Neck: -0.6 -----R Total: 0.3 -----L Total: 0.5 Bone mineral density has: Decreased -1.6% since study of: 06/30/2021 FRAX%s: The graph provided illustrates a 15.6% chance for a major osteoporotic fx and a 2.0% chance f or the hips probability for fx in 10 years time. IMPRESSION: Normal (Values between +1 and -1 indicate normal bone mass). Consider repeating this study in 5 year s or sooner if there is some new clinical indication. NOTE: T-SCORE=SD OF THE YOUNG ADULT MEAN.
--- NOTE | 2023-07-13 09:32 | MM ---
Reason for Exam: Screening (asymptomatic). Last screening mammogram was performed 12 month(s) ago. Patient History: Menarche at age 15. First Full-Term at age 32. Late child-bearing (after 32). Left ovary removed at age 52. Right ovary removed at age 52. Hysterectomy at age 52. Postmenopausal. Patient used Hormonal Contraceptives for 8 years. 1992, Benign Excisional Biopsy on the right side. 07/08/2019, High risk Core Biopsy on the right side. 06/04/2019, Benign Core Biopsy on the right side. Sister had ovarian cancer, age 40. Risk Values: Winter 5 year model risk: 3.4%. NCI Lifetime model risk: 12.6%. Prior Study Comparison: 01/12/2020 Right Diagnostic Mammogram, [facility]. 06/30/2021 Bilateral Screening Mammogram, [facility]. 07/03/2022 Bilateral MG 3D screening mammo w/cad, [facility]. Tissue Density: The breasts are almost entirely fatty. Findings: Analyzed By CAD. Right breast surgical clips. Right breast: There is no suspicious group of microcalcifications or new suspicious mass. Left breast: There is no suspicious group of microcalcifications or new suspicious mass. Benign-appearing calcifications left breast. Overall Assessment: Benign, BI-RAD 2 Management: Screening Mammogram of both breasts in [address] [facility] will attempt to contact patient to return for supplemental views and ultrasound if indicated. Patient should continue monthly self-breast exams. A clinical breast exam by your physician is recommended on an annual basis. This exam should not preclude additional follow-up of suspicious palpable abnormalities. Note on Winter scores and lifetime risk: 1. A Winter score greater than 3% is considered moderate risk. If this is the case, consider specialist referral to assess eligibility for a risk reducing agent. 2. If overall lifetime risk for the development of breast cancer is 20% or higher, the patient may qualify for future screening with alternating mammogram and breast MRI. Electronically signed and approved by: Ludwin Jean DO
== END | disposition home or self-care (01) ==
LOC: RADMAMWWP 10:32
PROVIDERS: ATTEND Internal Medicine
DX: Z12.31 Encounter for screening mammogram for malignant neoplasm of breast (principal); M85.89 Other specified disorders of bone density and structure, multiple sites; Z78.0 Asymptomatic menopausal state
CPT/HCPCS: 77063; 77067; 77080

== ENCOUNTER → 2023-11-05 | Outpatient (CLI) | payer MEDICARE | END | disposition home or self-care (01) | LOC: LABWHC1 14:52 | PROVIDERS: ATTEND Nurse Practitioner | DX: R00.2 Palpitations (principal) | CPT/HCPCS: 36415; 84443 ==

== ENCOUNTER → 2023-11-19 | Outpatient (CLI) | payer MEDICARE ==
[2023-11-19 13:34] LABS: INR 0.9 (<1.2)
[2023-11-19 18:15] LABS: HCT 40.9 % (37.2-50.0); HGB 13.4 g/dL (12.0-17.0); MCH 29.1 pg (27.0-32.0); MCHC 32.8 g/dL (32.0-37.0); MCV 88.7 FL (80.0-97.0); Mean Platelet Volume 11.1 FL (9.5-12.2); NRBC Per 100 WBC 0 X 10*3/uL (0.00-0.01); Platelet Count 242 X 10*3/uL (140-440); RBC 4.61 X 10*6/uL (4.10-5.60); RDW 13.2 % (11.5-14.5); WBC 5.85 X 10*3/uL (4.50-10.00)
[2023-11-19 19:02] LABS: ALT 34 U/L (8-49); AST 25 U/L (13-35); Albumin 4.5 g/dL (3.8-4.9); Albumin/Globulin Ratio 2.05 Ratio (1.60-3.17); Alkaline Phosphatase 137 U/L (41-126); BUN/Creat Ratio 15.43 Ratio (12.00-20.00); Blood Urea Nitrogen 10.8 mg/dL (9.0-27.0); Calcium 9.4 mg/dL (8.7-10.3); Carbon Dioxide 24.9 mmol/L (21.6-31.8); Chloride 105 mmol/L (96-109); Globulin 2.2 g/dL (1.6-3.3); Glucose 115 mg/dL (70-110); Potassium 4.2 mmol/L (3.5-5.5); Sodium 142 mmol/L (135-145); Total Bilirubin 0.5 mg/dL (0.3-1.2); Total Protein 6.7 g/dL (6.2-8.2)
== END | disposition home or self-care (01) ==
LOC: LABPAT 12:44
PROVIDERS: ATTEND Orthopaedic Surgery
DX: Z01.818 Encounter for other preprocedural examination (principal); Z22.322 Carrier or suspected carrier of Methicillin resistant Staphylococcus aureus; E11.9 Type 2 diabetes mellitus without complications; M16.11 Unilateral primary osteoarthritis, right hip
CPT/HCPCS: 36415; 80053; 83036; 85027; 85610; 85730; 86850; 86900; 86901; 87070

== ENCOUNTER 2023-11-30 08:19 | Day surgery (SDC) | payer MEDICARE ==
[2023-11-23 15:58] VITALS: BMI 30.1
[~2023-11-30 08:19] MED LIST changes: -DEXAMETHASONE SOD PHOSPHATE 10 MG/ML 1 ML VIAL IV ONE; -HEPARIN SODIUM,PORCINE 5,000 UNIT/ML 1 ML VIAL SQ ONE; -HYDROmorphone 0.5 MG/0.5 ML SYRINGE IVP PRN; -LACTATED RINGERS 1,000 ML IV SCH; -LIDOCAINE 1% (10MG/ML) FOR IV START INTRADERMA PRN; -MIDAZOLAM 2 MG/2 ML VIAL IV PRN; -ONDANSETRON 4 MG/2 ML VIAL IVP ONE; -Pre Op ABX Message 1 EACH MISC MISCELLANE ONE; +TRANEXAMIC 1,000 MG/100ML-NACL 1,000 MG in SALINE 1 100ML.BAG IV PRN; +TRANEXAMIC 1,000 MG/100ML-NACL 1,000 MG in SALINE 1 100ML.BAG IVPB PRN
[2023-11-30] MEDS: IV FLUID CONTINUATION 1,000 ML IV ONE (08:32)
[2023-11-30] MEDS: oxyCODONE ER 10 MG TAB.ER.12H PO PRN (08:50)
[2023-11-30] MEDS: ACETAMINOPHEN TAB 500 MG TAB PO PRN (08:50)
[2023-11-30] MEDS: DOCUSATE 100 MG CAP PO PRN (08:50)
[2023-11-30] MEDS: DEXAMETHASONE SOD PHOSPHATE 10 MG/ML 1 ML VIAL IV PRN (08:52)
[2023-11-30] MEDS: ONDANSETRON 4 MG/2 ML VIAL IVP PRN (08:52)
[2023-11-30] MEDS: KETOROLAC 15 MG/ML 1 ML VIAL IVP PRN (08:52)
[2023-11-30] MEDS: FAMOTIDINE 20 MG/2 ML VIAL IVP PRN (08:52)
[2023-11-30] MEDS: LACTATED RINGERS 1,000 ML IV SCH (08:53)
[2023-11-30 09:02] LABS: Glucose,Whole Blood 125 mg/dL (70-110)
[2023-11-30] MEDS: MIDAZOLAM 2 MG/2 ML VIAL IV ONE (09:08)
[2023-11-30] MEDS ORDERED: SUCCINYLCHOLINE CHLORIDE 200 MG/10 ML VIAL IV ONE (09:19)
[2023-11-30] MEDS ORDERED: LIDOCAINE 1% INJ 10MG/ML (20 ML MDV) ONE (09:19)
[2023-11-30] MEDS ORDERED: HYDROmorphone (PF) 1 MG/ML ONE (09:19)
[2023-11-30] MEDS ORDERED: ROPIVACAINE 5 MG/ML 30 ML VIAL ONE (09:19)
[2023-11-30] MEDS ORDERED: PHENYLEPHRINE 10 MG/ML VIAL ONE (09:19)
[2023-11-30] MEDS ORDERED: PROPOFOL 10 MG/ML 20 ML VIAL IV ONE (09:19)
[2023-11-30] MEDS ORDERED: TRANEXAMIC 1,000 MG/100ML-NACL PREMIX BAG ONE (09:19)
[2023-11-30] MEDS ORDERED: NEOSTIGMINE 1 MG/ML 10 ML VIAL ONE (09:19)
[2023-11-30] MEDS ORDERED: GLYCOPYRROLATE 0.2 MG/ML 2 ML VIAL ONE (09:19)
[2023-11-30] MEDS ORDERED: fentaNYL (PF) 50 MCG/ML 2 ML AMP ONE (09:19)
[2023-11-30] MEDS ORDERED: SUGAMMADEX SODIUM 200 MG/2 ML SDV IV ONE (09:19)
[2023-11-30] MEDS ORDERED: MIDAZOLAM 2 MG/2 ML VIAL ONE (09:19)
[2023-11-30] MEDS ORDERED: ROCURONIUM 10 MG/ML (5 ML VIAL) IV ONE (09:19)
--- NOTE | 2023-11-30 09:41 | P.ANPRN ---
Procedure Note - Anesthesia - Nerve Block Performed Right [place] Single Time Out Performed: Yes ([id number]) Date of Procedure: 11/30/23 Procedure Start Time: :08 Procedure Stop Time: :14 Location of Patient: PreOp Indication: Acute Post-Operative Pain, Requested by Surgeon Specifically requested for management of pain by DrAnabel: Paxton Bailon Sedation Type: Sedate with meaningful contact maintained Preparation: Sterile Prep Position: Supine Catheter: None Needle Types: Pajunk Needle Gauge: 21 Ultrasound used to visualize needle placement: Yes Ultrasound used to observe medication spread: Yes Injectate: 0.5% Ropivacaine (see comment for volume) (30cc) Blood Aspirated: No Pain Paresthesia on Injection Noted: No Resistance on Injection: Normal Image Stored and Saved: Yes Events: Uneventful and Well Tolerated
[2023-11-30] MEDS: ROPIVACAINE/EPI/CLONIDINE/KET 50 ML SYRINGE MISCELLANE PRN (09:54)
[2023-11-30] MEDS: LACTATED RINGERS 1,000 ML IV ONE (11:02)
[2023-11-30] MEDS ORDERED: ONDANSETRON 4 MG/2 ML VIAL IVP PRN (11:09)
[2023-11-30] MEDS ORDERED: HYDROmorphone 0.5 MG/0.5 ML SYRINGE IVP PRN ×2 (11:09)
[2023-11-30] MEDS ORDERED: MAGNESIUM HYDROXIDE 2,400 MG/30 ML CUP PO PRN (11:09)
[2023-11-30] MEDS ORDERED: HYDROcodone/APAP 10-325MG 1 EACH TAB PO PRN (11:09)
[2023-11-30] MEDS ORDERED: NALOXONE 0.4 MG/ML 1 ML VIAL IV PRN (11:09)
[2023-11-30] MEDS ORDERED: hydrOXYzine pamoate 25 MG CAP PO PRN (11:09)
--- NOTE | 2023-11-30 11:09 | P.OP ---
Date of Procedure: 11/30/23 Preoperative Diagnosis: Severe right hip osteoarthritis Postoperative Diagnosis: Same Procedure(s) Performed: Right direct anterior total hip arthroplasty Implants: 1. Benton Trident II Acetabular Cup, Size #46 2. Cris Insignia Size #3 Femoral Stem, Standard Offset 3. Dual Mobility OD 36 mm, ID 22.2 mm, +0 mm neck Anesthesia: GETA, regional Surgeon: Paxton Bailon Operating Room Rn #1: Juan C Webb Estimated Blood Loss (ml): 350 IV fluids (ml): 1,100 Pathology: none sent Condition: stable Disposition: PACU Indications for Procedure: I had a long discussion with the patient in the office on the potential risks and complications of an elective total hip replacement through a direct anterior approach. Risks discussed include, but are certainly not limited to, risks from anesthesia, superficial infection requiring local wound care or antibiotics, deep yousuf-prosthetic joint infection and the treatment required to eradicate infection, intraoperative fracture, postoperative periprosthetic fracture, damage to local blood vessels or nerves particularly the lateral femoral cutaneous nerve, delayed wound healing requiring local wound care or possibly surgical debridement, hip dislocation, leg length discrepancy, soft tissue irritation around the total hip implant such as iliopsoas tendinitis or trochanteric bursitis, wear and osteolysis from the implants, squeaking or audible noises, groin pain, thigh pain, heterotopic ossification, stiffness, aseptic loosening of the implants, dissatisfaction with surgical outcome, need for revision surgery, DVT, PE, swelling of the operative extremity, acute coronary event, stroke, failure to thrive, and possibly loss of life or limb. The patient understands that while these are the most common complications after an elective hip replacement there are certainly other less common complications possible. They were given ample time to ask questions regarding the potential complications of a hip replacement. Following our discussion the patient provided their verbal and written consent to go forward with an elective total hip replacement. Description of Procedure: The patient was identified in the preoperative holding area and the correct hip was marked with my initials. I reviewed the procedure and consent with the patient. All of their questions were answered. The patient was then brought back into the operating room by anesthesia. While on the [facility] anesthesia was administered by the anesthesia team. Preoperative antibiotics and tranexamic acid were also given. After the patient was under anesthesia I examined their ankles to determine their preoperative leg length discrepancy. The skin over the anterior aspect of the hip was shaved to remove hair over the site of planned incision. Both feet and ankles were padded with webril and boots for the [place] were applied. The patient was then carefully transferred onto the [place] table. A perineal post was immediately placed. The arms were placed on arm holders and were well-padded. Both boots were secured to the spars on the Norman table. The patient was positioned so that the pelvis was centered over the post. Nonsterile drapes were applied. A timeout was performed identifying the correct patient, operative extremity, and procedure. At this point fluoroscopy was brought in to take preoperative images of the pelvis and operative hip. Using the standing AP pelvis from the office as a template, a comparable image was obtained with fluoroscopy. A metallic bar was used to create a bi-ischial line for use as a reference to leg length adjustments during the procedure. Global offset was also measured on both the operative and nonoperative leg. Fluoroscopy was then brought out and a pre-scrub using a chlorhexidine scrub brush was performed. The operative limb was then prepped and draped in the standard sterile fashion. An anterior longitudinal incision was made lateral and distal to the ASIS. The skin and subcutaneous tissues were incised sharply. The underlying tensor fascia was identified and incised in its midportion. The fascia was dissected free from the underlying muscle and the muscle belly was retracted. A blunt tipped cobra retractor was placed over the superior neck under the muscle fibers of the gluteus minimus. The deep enveloping fascia of the tensor was incised. The anterior leash of vessels were then identified and cauterized. The fascia between the rectus and the capsule was then incised and the pre-capsular fat was excised. A second Cobra was placed inferior to the neck. The interval between the rectus and iliocapsularis and the hip capsule was developed and a retractor was placed carefully over the anterior rim of the acetabulum. A T-shaped anterior capsulotomy was performed. The superior capsular leaflet was left in place in the inferior capsular flap was excised. The Cobra retractors were placed intracapsularly. We then made a femoral neck osteotomy according to preoperative and intraoperative templating and confirmed the level of the osteotomy using fluoroscopic imaging. The femoral head was removed, passed off to the back table, and sized. The superior capsular flap was excised. Retractors were placed circumferentially exposing the acetabulum. We then circumferentially debrided the acetabulum free of labrum and osteophytes. The pulvinar was removed to fully visualize the cotyloid fossa. We then sequentially reamed to achieve peripheral fit and excellent bleeding subchondral bone. The socket was thoroughly irrigated. The acetabular component was i mpacted into the appropriate position using fluoroscopy to guide version, inclination, and depth of insertion taking care to have a comparable image of the AP pelvis to the standing image taken in the office. An excellent press-fit was achieved and final position was confirmed using fluoroscopy. The press fit was augmented with bony cancellus dome screws. The liner was then impacted into the socket. Attention was then turned to the femur. The remnant dorsal lateral capsule was excised. The short external rotators were visible and protected. A bone hook was used to confirm appropriate translation of the trochanter away from the acetabulum. The leg was then extended and adducted and the bone hook was used to elevate the femur for broaching. A box osteotome and blunt tipped canal alessio nd was then utilized to gain access to the femoral canal. We then sequentially broached the femur in appropriate anteversion until excellent torsional stability was achieved. The neck cut was brought flush to the trial broach with a calcar planar. A trial neck and head were then placed onto the broach and the hip was atraumatically reduced under direct visualization. External rotation to 90 was performed to assess stability. Fluoroscopy was brought in. An AP and lateral fluoroscopic image of the proximal femur was obtained to assess position and fill of the trial broach. An AP of the pelvis was then obtained and matched to the preoperative image taken. A bi-ischial bar was then placed and measurements were taken to assess changes in length and offset. The hip was then carefully dislocated, the proximal femur was exposed, and the trial implants were removed. The wound and proximal femur was thoroughly irrigated using sterile saline and pulsatile lavage. The final femoral implant was dispensed and gently tapped into place generating an excellent press-fit. The trunnion was cleansed and the final head was tapped into place to engage the Padilla taper. The acetabulum was irrigated and visualized to be free of debris. The hip was carefully reduced. Stability was checked clinically with external rotation to 90 and there was no evidence of instability. Final fluoroscopic images were taken. The wound was then thoroughly irrigated and soaked with a dilute Betadine rinse for 3 minutes. 3 L of sterile saline was irrigated through the wound using pulsatile lavage. Local anesthetic cocktail was injected into the soft tissues around the surgical field. The wound was then closed in layers. A sterile dressing was placed over the surgical incision. The drapes were taken down and the patient was carefully transferred off of the Norman table. Following removal of the boots the leg lengths felt acceptable. The patient was then taken to recovery room having tolerated the procedure well. . PLAN: The patient can weight-bear as tolerated on the operative extremity. 2 doses of postoperative antibiotics. DVT prophylaxis with aspirin 81 mg twice a day based on preoperative risk stratification. Physical therapy for gait training.
[2023-11-30 12:03] LABS: Glucose,Whole Blood 159 mg/dL (70-110)
--- NOTE | 2023-11-30 12:46 | FL ---
EXAMINATION TYPE: FL guidance operating room, XR Hip Limited RT DATE OF EXAM: 11/30/2023 Comparison: None available Clinical History: 68-year-old female TOTAL ANT HIP IN OR RIGHT Findings: Serial intraoperative imaging during placement of right total hip arthroplasty. Alignment appears jayme ssly anatomic. There is mild degenerative spurring at the left hip noted. FLUOROSCOPY Fluoroscopy time of 43 seconds was used during right hip total arthroplasty anterior approach. 7 francine ge/s document/s the procedure. DAP=3.8089 Gycm2. Impression: Intraoperative fluoroscopy during right hip total arthroplasty. Alignment grossly anatomic. [facility], , 11/30/2023 12:44 PM
[2023-11-30] MEDS: SODIUM CHLORIDE 0.9% 1,000 ML IV SCH (13:46)
[2023-11-30 16:29] LABS: Glucose,Whole Blood 149 mg/dL (70-110)
[2023-11-30] MEDS ORDERED: DEXTROSE 50% SYRINGE 50 ML IVP PRN ×2 (16:35)
--- NOTE | 2023-11-30 16:35 | P.CONS ---
History of Present Illness - Reason for Consult Consult date: 11/30/23 - History of Present Illness Patient is a 68-year-old female with history of hypertension, diabetes, dyslipidemia, anxiety/depression presenting for elective total right hip arthroplasty. Sound physicians consulted for medical management. Currently patient denies any chest pain, shortness of breath, abdominal pain, nausea, vomiting, urinary or bowel complaints. Glucose check 125 and 159 today. No other laboratory workup available. Currently temperature is 97.5, pulse 81, respiratory rate 16, blood pressure 104/63, saturating at 92% on room air. Pertinent positives and negatives as discussed in HPI, a complete review of systems was performed and all other systems are negative. Patient seen and examined at bedside. Vital signs reviewed General: nontoxic, no distress, appears at stated age Derm: warm, dry, dressing clean, dry, intact Head: atraumatic, normocephalic, symmetric Eyes: EOMI, no lid lag, anicteric sclera, pupils equal round reactive to light ENT: Nose and ears atraumatic Neck: No thyromegaly, supple Mouth: no lip lesion, mucus membranes moist Cardiovascular: S1S2 reg, no murmur, no edema Lungs: clear to auscultation bilateral, no rhonchi, no rales, no wheeze, no accessory muscle use Abdominal: soft, nontender to palpation, no guarding, no appreciable organomegaly Ext: no gross muscle atrophy, muscle strength muscle strength 5 out of 5 in all 4 extremities, no contractures Neuro: CN II-XII grossly intact Psych: Alert, oriented, appropriate affect Assessment/Plan: Active: Status post total right hip arthroplasty -Pain control with oral [place] as needed, IV Dilaudid as needed, monitor for sedation -Bowel regimen and DVT prophylaxis per orthopedic surgery -On aspirin 81 mg twice daily -CBC tomorrow Dyslipidemia -Continue atorvastatin 80 mg nightly -Continue fish oil 1 cap daily 1000 mg Type 2 diabetes -Hold metformin -Started on sliding scale insulin, low-dose, ACHS, monitor for hypoglycemia Hypertension -Patient's blood pressure is currently well-controlled, borderline low -Hold amlodipine and losartan -Continue home metoprolol 100 mg daily -BMP ordered for tomorrow Anxiety/depression -Continue venlafaxine 150 twice daily Thank you for allowing us to participate in the care of this pleasant patient. Do not hesitate to contact us with questions. Someone can be reached from the [facility] hospitalist group all hours of the day at [phone] or via [email or web address]. Past Medical History Past Medical History: CVA/TIA, Diabetes Mellitus, Hyperlipidemia, Hypertension, Mitral Valve Prolapse (MVP), Osteoarthritis (OA), Skin Disorder, Sleep Apnea/CPAP/BIPAP Additional Past Medical History / Comment(s): Hx TGA X2(transient global amnesia) Nov 2017, . VERTIGO. USES CPAP. RUPTURED DISC. DERMATITIS ON CHIN. History of Any Multi-Drug Resistant Organisms: None Reported Past Surgical History: Breast Surgery, Hysterectomy, Orthopedic Surgery Additional Past Surgical History / Comment(s): Left knee surgery, breast biopsy, right foot surgery with plate and screws placed. Past Anesthesia/Blood Transfusion Reactions: No Reported Reaction, Motion Sickness Past Psychological History: Anxiety, Depression Smoking Status: Former smoker, Vaper Past Alcohol Use History: Occasional Additional Past Alcohol Use History / Comment(s): QUIT SMOKING 30 YEARS AGO, (SMOKED A FEW CIGARETTES/DAY). VAPES NOW. Past Drug Use History: None Reported - Past Family History Mother Family Medical History: Cancer, Diabetes Mellitus, Deep Vein Thrombosis (DVT), Thyroid Disorder Additional Family Medical History / Comment(s): THYROID CANCER. Father Family Medical History: Coronary Artery Disease (CAD), Deep Vein Thrombosis (DVT) Sister(s) Family Medical History: Cancer Additional Family Medical History / Comment(s): CERVICAL CANCER. Medications and Allergies Home Medications Medication Instructions Recorded Confirmed Type Venlafaxine HCl [Effexor XR] 150 mg PO BID 12/15/15 11/30/23 History amLODIPine [Norvasc] 5 mg PO HS 12/15/15 11/30/23 History Metoprolol Succinate [Toprol Xl] 100 mg PO QA 12/14/17 11/30/23 History Aspirin [Adult Low Dose Aspirin EC] 81 mg PO DAILY 05/28/19 11/30/23 History Multivit-Min/Iron/Folic/Lutein 1 tab PO DAILY 07/07/19 11/30/23 History [Centrum Silver Women Tablet] [place]-3 Fatty Acids/Fish Oil [Fish 1 cap PO DAILY 07/07/19 11/30/23 History Oil 1,000 mg Softgel] Losartan Potassium 100 mg PO HS 05/29/21 11/30/23 History Meclizine HCl 25 mg PO TID PRN 05/29/21 11/30/23 History Atorvastatin [Lipitor] 80 mg PO HS 11/23/23 11/30/23 History Valtrex (Unknown Dose) 1 tab PO DIRECTED PRN 11/23/23 11/30/23 History metFORMIN HCL 500 mg PO HS 11/23/23 11/30/23 History Aspirin 81 mg PO BID #60 tab 11/30/23 Rx Celecoxib [CeleBREX] 200 mg PO BID #60 cap 11/30/23 Rx Docusate [Colace] 100 mg PO BID #60 capsule 11/30/23 Rx HYDROcodone/APAP 5-325MG [[place] 1 - 2 tab PO Q6HR PRN #48 tab 11/30/23 Rx 5-325] Omeprazole [PriLOSEC] 40 mg PO DAILY #30 cap 11/30/23 Rx Allergies Allergy/AdvReac Type Severity Reaction Status Date / Time cephalexin [From Keflex] Allergy Rash/Hives Verified 11/30/23 08:34 Physical Exam Vitals: Vital Signs Temp Pulse Resp BP Pulse Ox 11/30/23 13:40 97.5 F L 81 16 104/63 92 L 11/30/23 13:14 86 14 101/59 94 L 11/30/23 12:57 80 14 82/51 94 L 11/30/23 12:42 78 14 94/57 97 11/30/23 12:27 76 16 94/57 96 11/30/23 12:12 78 16 104/60 98 11/30/23 11:57 78 16 102/62 97 11/30/23 11:42 97 F L 78 16 95/56 91 L 11/30/23 09:14 80 16 119/65 96 11/30/23 08:38 97.5 F L 83 16 134/74 95 Intake and Output 11/30/23 11/30/23 11/30/23 06:59 14:59 22:59 Intake Total 1350 Output Total 350 Balance 1000 Intake: IV 1350 Output: Estimated Blood Loss 350 Other: Weight 78.2 kg Results Labs: Abnormal Lab Results - Last 24 Hours (Table) 11/30/23 11/30/23 Range/Units 09:01 12:01 POC Glucose (mg/dL) 125 H 159 H (70-110) mg/dL
[2023-11-30] MEDS: INSULIN ASPART (NovoLOG) 100 UNIT/ML VIAL SQ SCH (16:43)
[2023-11-30 22:17] LABS: Glucose,Whole Blood 136 mg/dL (70-110)
[2023-11-30] MEDS: VENLAFAXINE HCL ER 150 MG CAP PO SCH (22:23)
[2023-11-30] MEDS: ATORVASTATIN 80 MG TAB PO SCH (22:23)
[2023-11-30] MEDS: SENNOSIDES-DOCUSATE SODIUM 1 EACH TAB PO SCH (22:23)
[2023-11-30] MEDS: ASPIRIN 81 MG PO SCH (22:23)
[2023-12-01 02:40] VITALS: RESP 18
[2023-12-01] MEDS: HYDROcodone/APAP 5-325MG 1 EACH TAB PO PRN (04:39)
[2023-12-01 06:30] LABS: Glucose,Whole Blood 128 mg/dL (70-110)
[2023-12-01 07:14] VITALS: BP 120/70; PULSE 98; TEMP 97.7
--- NOTE | 2023-12-01 07:43 | P.DS ---
Providers Date of admission: 11/30/2023 Attending physician: Paxton Bailon Consults: 11/30/23 11:09 Consult Physician Routine Consulting Provider: Wes Thomason Consult Reason/Comments: post op medical management Do you want consulting provider notified?: Yes [facility] Course: The patient is a very pleasant 68-year-old female who underwent an uncomplicated total hip replacement yesterday. Following surgery she was transferred to the orthopedic floor. Overnight she lost her balance and slipped off the toilet landing on her buttock. She had minimal increasing pain and was able to ambulate without difficulty. On postoperative day #1 she was doing well with minimal pain in her hip. Her dressing was intact. Her thigh was soft and compressible. Femoral nerve function was intact. She was able to actively plantarflex and dorsiflex her ankle and her toes. Internal medicine was consulted and managed her medical issues. She worked with physical therapy and did well. She was ultimately cleared for discharge home. Plan - Discharge Summary Discharge Rx Participant: No New Discharge Prescriptions: New Aspirin 81 mg PO BID #60 tab Docusate [Colace] 100 mg PO BID #60 capsule Omeprazole [PriLOSEC] 40 mg PO DAILY #30 cap HYDROcodone/APAP 5-325MG [[place] 5-325] 1 - 2 tab PO Q6HR PRN #48 tab PRN Reason: Pain Celecoxib [CeleBREX] 200 mg PO BID #60 cap No Action amLODIPine [Norvasc] 5 mg PO HS Venlafaxine HCl [Effexor XR] 150 mg PO BID Metoprolol Succinate [Toprol Xl] 100 mg PO QAM Aspirin [Adult Low Dose Aspirin EC] 81 mg PO DAILY [place]-3 Fatty Acids/Fish Oil [Fish Oil 1,000 mg Softgel] 1 cap PO DAILY Multivit-Min/Iron/Folic/Lutein [Centrum Silver Women Tablet] 1 tab PO DAILY Meclizine HCl 25 mg PO TID PRN PRN Reason: Vertigo Valtrex (Unknown Dose) 1 tab PO DIRECTED PRN PRN Reason: Cold Sore metFORMIN HCL 500 mg PO HS Losartan Potassium 100 mg PO HS Atorvastatin [Lipitor] 80 mg PO HS Discharge Medication List Venlafaxine HCl [Effexor XR] 150 mg PO BID 12/15/15 [History] amLODIPine [Norvasc] 5 mg PO HS 12/15/15 [History] Metoprolol Succinate [Toprol Xl] 100 mg PO QAM 12/14/17 [History] Aspirin [Adult Low Dose Aspirin EC] 81 mg PO DAILY 05/28/19 [History] Multivit-Min/Iron/Folic/Lutein [Centrum Silver Women Tablet] 1 tab PO DAILY 07/07/19 [History] [place]-3 Fatty Acids/Fish Oil [Fish Oil 1,000 mg Softgel] 1 cap PO DAILY 07/07/19 [History] Losartan Potassium 100 mg PO HS 05/29/21 [History] Meclizine HCl 25 mg PO TID PRN 05/29/21 [History] Atorvastatin [Lipitor] 80 mg PO HS 11/23/23 [History] Valtrex (Unknown Dose) 1 tab PO DIRECTED PRN 11/23/23 [History] metFORMIN HCL 500 mg PO HS 11/23/23 [History] Aspirin 81 mg PO BID #60 tab 11/30/23 [Rx] Celecoxib [CeleBREX] 200 mg PO BID #60 cap 11/30/23 [Rx] Docusate [Colace] 100 mg PO BID #60 capsule 11/30/23 [Rx] HYDROcodone/APAP 5-325MG [[place] 5-325] 1 - 2 tab PO Q6HR PRN #48 tab 11/30/23 [Rx] Omeprazole [PriLOSEC] 40 mg PO DAILY #30 cap 11/30/23 [Rx] Follow up Appointment(s)/Referral(s): Residential Home,Health [NON-STAFF] - As Needed Discharge Disposition: HOME WITH HOME HEALTH SERVICES
[2023-12-01 09:00] LABS: Basophils # (A) 0.03 X 10*3/uL (0.00-0.10); Basophils % (A) 0.3 %; Eosinophils # (A) 0 X 10*3/uL (0.04-0.35); Eosinophils % (A) 0 %; HGB 9.6 g/dL (12.0-17.0); Lymphocytes % (A) 6.6 %; MCH 29.4 pg (27.0-32.0); MCHC 33.1 g/dL (32.0-37.0); MCV 88.7 FL (80.0-97.0); Mean Platelet Volume 11.1 FL (9.5-12.2); Monocytes # (A) 0.65 X 10*3/uL (0.20-1.00); Monocytes % (A) 6.1 %; NRBC Per 100 WBC 0 X 10*3/uL (0.00-0.01); Neutrophils # (A) 9.15 X 10*3/uL (1.80-7.70); Neutrophils % (A) 86.5 %; Platelet Count 205 X 10*3/uL (140-440); RBC 3.27 X 10*6/uL (4.10-5.60); RDW 13.2 % (11.5-14.5); WBC 10.58 X 10*3/uL (4.50-10.00)
[2023-12-01] MEDS ORDERED: NON FORMULARY DRUG (Omega-3 Fatty Acids/Fish Oil [Fish Oil 1,000 Mg Softgel] 1 EACH Capsul PO SCH (09:00)
[2023-12-01] MEDS: METOPROLOL SUCCINATE (ER) 100 MG TAB.ER.24H PO SCH (09:09)
[2023-12-01] MEDS: FAMOTIDINE 20 MG TAB PO SCH (09:09)
[2023-12-01 09:13] LABS: Blood Urea Nitrogen 14.8 mg/dL (9.0-27.0); Calcium 8.3 mg/dL (8.7-10.3); Carbon Dioxide 22.8 mmol/L (21.6-31.8); Chloride 106 mmol/L (96-109); Glucose 108 mg/dL (70-110); Potassium 3.8 mmol/L (3.5-5.5); Sodium 140 mmol/L (135-145)
--- NOTE | 2023-12-01 09:30 | P.PN ---
Subjective Progress Note Date: 12/01/23 Subjective: Seen and examined at bedside. No acute events overnight. Pertinent positives and negatives as discussed above, a complete review of systems was performed and all other systems are negative. Vitals Signs Reviewed. General: [nontoxic], [no distress], [appears at stated age] Derm: [warm], [dry], dressing clean, dry, intact Head: [atraumatic], [normocephalic], [symmetric] Eyes: [EOMI], [no lid lag], [anicteric sclera] Mouth: [no lip lesion], [mucus membranes moist] Cardiovascular: [S1S2 reg], [no murmur] Lungs: [CTA bilateral], [no rhonchi, no rales] , [no accessory muscle use] Abdominal: [soft], [ nontender to palpation], [no guarding], [no appreciable organomegaly] Ext: [no gross muscle atrophy], [no edema], [no contractures] Neuro: [ CN II-XI grossly intact], [no focal neuro deficits] Psych: [Alert], [oriented], [appropriate affect] Data Reviewed Today: Pertinent Labs: WBC 10.58, hemoglobin 9.6, creatinine 0.8, blood sugars range between 10 8-1 49 Imaging: No new imaging Assessment and Plan: Status post total right hip arthroplasty Leukocytosis, anticipated outcome of surgery Mild acute blood loss anemia, anticipated outcome of surgery -Pain control with oral [place] as needed, IV Dilaudid as needed, monitor for sedation -Bowel regimen and DVT prophylaxis per orthopedic surgery -On aspirin 81 mg twice daily Dyslipidemia -Continue atorvastatin 80 mg nightly -Continue fish oil 1 cap daily 1000 mg Type 2 diabetes -Hold metformin -Continue on sliding scale insulin, low-dose, ACHS, monitor for hypoglycemia Hypertension -Hold amlodipine and losartan while inpatient -Continue home metoprolol 100 mg daily Anxiety/depression -Continue venlafaxine 150 twice daily Patient is otherwise medically optimized for discharge Thank you for allowing us to participate in the care of this pleasant patient. Do not hesitate to contact us with questions. Someone can be reached from the [facility] hospitalist group all hours of the day at [phone] or via perfect serve. Objective - Vital Signs Vital signs: Vital Signs Temp 97.7 F 12/01/23 07:12 Pulse 98 12/01/23 07:12 Resp 18 12/01/23 07:12 BP 120/70 12/01/23 07:12 Pulse Ox 90 L 12/01/23 07:12 FiO2 Intake & Output 11/30/23 12/01/23 12/01/23 18:59 06:59 18:59 Intake Total 1350 Output Total 350 Balance 1000 Weight 78.2 kg Intake: IV 1350 Output: Estimated Blood Loss 350 Other: Voiding Method Toilet # Voids 2 - Labs CBC & Chem 7: 12/01/23 04:31 12/01/23 04:31 Labs: Abnormal Lab Results - Last 24 Hours (Table) 11/30/23 11/30/23 11/30/23 Range/Units 12:01 16:27 22:15 WBC (4.50-10.00) X 10*3/uL RBC (4.10-5.60) X 10*6/uL Hgb (12.0-17.0) g/dL Hct (37.2-50.0) % Immature Gran # (0.00-0.04) X 10*3/uL Neutrophils # (1.80-7.70) X 10*3/uL Lymphocytes # (0.90-5.00) X 10*3/uL Eosinophils # (0.04-0.35) X 10*3/uL POC Glucose (mg/dL) 159 H 149 H 136 H (70-110) mg/dL Calcium (8.7-10.3) mg/dL 12/01/23 12/01/23 12/01/23 Range/Units 04:31 04:31 06:28 WBC 10.58 H (4.50-10.00) X 10*3/uL RBC 3.27 L (4.10-5.60) X 10*6/uL Hgb 9.6 L (12.0-17.0) g/dL Hct 29.0 L (37.2-50.0) % Immature Gran # 0.05 H (0.00-0.04) X 10*3/uL Neutrophils # 9.15 H (1.80-7.70) X 10*3/uL Lymphocytes # 0.70 L (0.90-5.00) X 10*3/uL Eosinophils # 0 L (0.04-0.35) X 10*3/uL POC Glucose (mg/dL) 128 H (70-110) mg/dL Calcium 8.3 L (8.7-10.3) mg/dL
[2023-12-01 11:30] LABS: Glucose,Whole Blood 117 mg/dL (70-110)
[2023-12-01] MEDS ORDERED: MULTIVITAMINS, THERA 1 EACH TAB PO SCH (12:00)
== END 2023-12-01 12:06 | disposition home health service (06) ==
LOC: OR 08:19 → 4SSUR 11:16 → OR 12-01 12:06
PROVIDERS: ATTEND Orthopaedic Surgery
CPT/HCPCS: 73501; 80048; 85025

== ENCOUNTER → 2024-04-25 | Outpatient (CLI) | payer MEDICARE ==
--- NOTE | 2024-04-25 14:28 | US ---
EXAMINATION TYPE: US arterial LE single level DATE OF EXAM: 04/25/2024 2:16 PM COMPARISONS: None. 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 History of: Smoker: Current Smoker Hypertension: Yes Diabetic: No Hyperlipidemia: Yes TIA/CVA: Global Ischemic amnesia Previous Vascular Surgery: No CAD: No HI: No Vascular Ulcers: Yes Claudication: No Gangrene: No FINDINGS: Doppler Waveforms: Right: Multiphasic Left: Multiphasic Pulse Volume Recording: Pressure Gradients: Brachial Artery systolic pressure: Right: 128 Left: 130 Posterior Tibial artery systolic pressure: Right: 153 Left: 155 Dorsalis Pedis artery systolic pressure: Right: 152 Left: 141 Toe artery systolic pressure: Right: XX Left: XX Ankle-Brachial Indices: Right: 1.18 Left: 1.19 Toe Brachial Indices: Right: 1.17 Left: 1.08 (Normal > 0.6; Mild 0.35 - 0.59, Moderate 0.12 - 0.34, Severe <0.12) IMPRESSION: BARON: Right: Normal 0.9 - 1.4, Recommendation: None Left: Normal 0.9 - 1.4, Recommendation: None [facility], , 04/25/2024 2:26 PM
== END | disposition home or self-care (01) ==
LOC: RADUSWWP 13:55
PROVIDERS: ATTEND Internal Medicine
DX: I73.9 Peripheral vascular disease, unspecified (principal); G62.9 Polyneuropathy, unspecified
CPT/HCPCS: 93922

== ENCOUNTER → 2024-04-28 | Outpatient (CLI) | payer MEDICARE ==
[2024-04-28 21:21] LABS: Basophils # (A) 0.07 X 10*3/uL (0.00-0.10); Eosinophils # (A) 0.15 X 10*3/uL (0.04-0.35); Eosinophils % (A) 2.1 %; HCT 42.4 % (37.2-50.0); HGB 14.1 g/dL (12.0-17.0); Lymphocytes # (A) 1.38 X 10*3/uL (0.90-5.00); Lymphocytes % (A) 19.5 %; MCHC 33.3 g/dL (32.0-37.0); MCV 84.1 FL (80.0-97.0); Monocytes # (A) 0.37 X 10*3/uL (0.20-1.00); Monocytes % (A) 5.2 %; NRBC Per 100 WBC 0 X 10*3/uL (0.00-0.01); Neutrophils # (A) 5.08 X 10*3/uL (1.80-7.70); Neutrophils % (A) 71.9 %; Platelet Count 246 X 10*3/uL (140-440); RBC 5.04 X 10*6/uL (4.10-5.60); RDW 14.1 % (11.5-14.5); WBC 7.07 X 10*3/uL (4.50-10.00)
[2024-04-28 21:24] LABS: ALT 31 U/L (8-49); AST 26 U/L (13-35); Albumin 4.6 g/dL (3.8-4.9); Alkaline Phosphatase 130 U/L (41-126); BUN/Creat Ratio 15.14 Ratio (12.00-20.00); Blood Urea Nitrogen 10.6 mg/dL (9.0-27.0); Calcium 9.5 mg/dL (8.7-10.3); Carbon Dioxide 25.6 mmol/L (21.6-31.8); Chloride 104 mmol/L (96-109); Chol/HDL Ratio 3.36 Ratio; Globulin 2.3 g/dL (1.6-3.3); Glucose 104 mg/dL (70-110); LDL Cholesterol,Calculated 90.4 mg/dL (0.0-131.0); Magnesium 1.7 mg/dL (1.5-2.4); Sodium 143 mmol/L (135-145); Total Bilirubin 0.6 mg/dL (0.3-1.2); Total Protein 6.9 g/dL (6.2-8.2)
== END | disposition home or self-care (01) ==
LOC: LABWHC1 14:34
PROVIDERS: ATTEND Internal Medicine
DX: E11.9 Type 2 diabetes mellitus without complications (principal)
CPT/HCPCS: 36415; 80053; 80061; 83036; 83735; 84443; 85025

== ENCOUNTER → 2024-09-05 | Outpatient (CLI) | payer MEDICARE ==
--- NOTE | 2024-09-08 11:24 | MM ---
Reason for Exam: Screening (asymptomatic). Last mammogram was performed 1 year(s) and 2 month(s) ago. Patient History: Menarche at age 15. First Full-Term at age 32. Late child-bearing (after 32). Left ovary removed at age 52. Right ovary removed at age 52. Hysterectomy at age 52. Postmenopausal. Patient used Hormonal Contraceptives for 8 years. 1992, Benign Excisional Biopsy on the right side. 07/08/2019, High risk Core Biopsy on the right side. 06/04/2019, Benign Core Biopsy on the right side. Sister had ovarian cancer, age 40. Risk Values: Winter 5 year model risk: 3.5%. NCI Lifetime model risk: 11.7%. Prior Study Comparison: 06/30/2021 Bilateral Screening Mammogram, [facility]. 07/03/2022 Bilateral MG 3D screening mammo w/cad, [facility]. 07/09/2023 Bilateral MG 3D screening mammo w/cad, [facility]. Tissue Density: There are scattered areas of fibroglandular density. Findings: Analyzed By CAD. Stable postsurgical changes involving the right breast. Benign-appearing lymph nodes left breast. Asymmetric density/chronic nodularity along the inner margin right breast is stable. Overall Assessment: Benign, BI-RAD 2 Management: Screening Mammogram of both breasts in 1 year. . Patient should continue monthly self-breast exams. A clinical breast exam by your physician is recommended on an annual basis. This exam should not preclude additional follow-up of suspicious palpable abnormalities. Note on Winter scores and lifetime risk: 1. A Winter score greater than 3% is considered moderate risk. If this is the case, consider specialist referral to assess eligibility for a risk reducing agent. 2. If overall lifetime risk for the development of breast cancer is 20% or higher, the patient may qualify for future screening with alternating mammogram and breast MRI. [facility], , 09/05/2024 12:31 PM. Electronically signed and approved by: Kumar Olivera M.D. Radiolog[facility]
== END | disposition home or self-care (01) ==
LOC: RADMAMWWP 11:59
PROVIDERS: ATTEND Internal Medicine
DX: Z12.31 Encounter for screening mammogram for malignant neoplasm of breast (principal); R92.323 Mammographic fibroglandular density, bilateral breasts; Z92.0 Personal history of contraception; Z78.0 Asymptomatic menopausal state
CPT/HCPCS: 77063; 77067